=== PATIENT | male | born 1980 | race Caucasian/White ===

== ENCOUNTER 2018-10-17 16:50 | Inpatient (IN) | payer BC, MEDICARE ==
[~2018-10-17] VITALS: Ht 170.2 cm; Wt 59.4 kg
[2018-10-17] VITALS (10 sets, daily range): BP systolic 89–172
[~2018-10-17 16:50] MED LIST: ITRA100C PO; LEVO500T20 PO; METR500T PO; PRED10TA PO; [UNRECOGNIZED DRUG - OTHER] IV
[2018-10-17] MEDS ORDERED: PROPOFOL DRIP 100 ML IV ONE ×2 (17:00→17:11)
[2018-10-17 17:21] LABS: HEMOGLOBIN 12.2 g/dL (14.0-18.0); MEAN CORPUSCULAR HEMOGLOBIN 30 pg (27-31); MEAN CORPUSCULAR HGB CONC 32 % (32-36); MEAN CORPUSCULAR VOLUME 93 fL (79.0-98.0); PLATELET COUNT (AUTO) 189 K/uL (130-430); RED BLOOD CELL COUNT(AUTO) 4.11 MIL/uL (4.2-6.2); RED CELL DISTRIBUTION WIDTH 16.8 % (9.0-15.0)
[2018-10-17] MEDS ORDERED: MERO1PIG IV (17:28)
[2018-10-17] MEDS ORDERED: VFE200 PO (17:28)
[2018-10-17] MEDS ORDERED: XOP.63 INH (17:28)
[2018-10-17] MEDS ORDERED: LEVE500T9 PO (17:28)
[2018-10-17] MEDS ORDERED: SULF1TAB48 PO (17:28)
[2018-10-17] MEDS ORDERED: LORazepam 2 MG/ML VIAL (FOR ER USE) IVP ONE (17:30)
[2018-10-17] MEDS ORDERED: PIPERACILLIN/TAZO 3.375 GM in NS 50 ML IV ONE (17:30)
[2018-10-17] MEDS ORDERED: LORazepam 2 MG/ML VIAL (FOR ER USE) ONE (17:37)
[2018-10-17 17:40] LABS: ANION GAP 6 (5-15); CALCIUM 9.3 mg/dL (8.4-11.0); CHLORIDE 90 mmol/L (98-107); CREATININE 1.15 mg/dL (0.55-1.30); GLUCOSE 228 mg/dL (70-99); POTASSIUM 4.4 mmol/L (3.5-5.1); SODIUM SERUM 139 mmol/L (136-145); UREA NITROGEN, BLOOD 18 mg/dL (8-21)
[2018-10-17 17:43] LABS: GFR AFRICAN AMERICAN 91 mL/min (>90)
[2018-10-17 17:44] LABS: INR 0.9 (0.80-1.20)
[2018-10-17] MEDS ORDERED: NACL 0.9% 2,500 ML IV ONE (17:45)
[2018-10-17 17:46] LABS: ALANINE AMINOTRANSFERASE 7 U/L (12-78); ALBUMIN 3.1 g/dL (3.4-4.8); ASPARTATE AMINOTRANSFERASE 21 U/L (10-37); TOTAL BILIRUBIN 0.5 mg/dL (0.0-1.0)
[2018-10-17 17:47] LABS: ACETAMINOPHEN < 1 ug/mL (1-30); ALCOHOL, BLOOD < 3 mg/dL (<10)
[2018-10-17 17:53] LABS: BILIRUBIN,URINE NEGATIVE (NEGATIVE); BLOOD, URINE 1+ (NEGATIVE); CLARITY/URINE SL CLOUDY (CLEAR); COLOR,URINE YELLOW (YELLOW); GLUCOSE,URINE TRACE (NEGATIVE); KETONES,URINE NEGATIVE (NEGATIVE); LEUKOCYTE ESTERASE ,URINE NEGATIVE (NEGATIVE); NITRITE, URINE NEGATIVE (NEGATIVE); PH,URINE 6.5 (5.0-8.0); PROTEIN URINE 3+ (NEGATIVE); UROBILINOGEN,URINE 0.2 (0.2-1.0)
[2018-10-17 17:57] LABS: BAND % (MANUAL) 9 % (0-6); BASOPHILS % (MANUAL) 0 % (0-2); EOSINOPHILS % (MANUAL) 1 % (0-7); LYMPHOCYTES % (MANUAL) 12 % (20-46); MONOCYTES % (MANUAL) 8 % (0-11)
[2018-10-17 17:59] LABS: BACTERIA,URINE MODERATE /HPF (None Seen)
[2018-10-17 18:03] LABS: BARBITURATE, URINE NEGATIVE (NEG <=200); BENZODIAZEPINE, URINE NEGATIVE (NEG <=150); CANNABINOID, URINE NEGATIVE (NEG <=50); COCAINE, URINE NEGATIVE (NEG <=150); METHAMPHETAMINES SCREEN,URINE NEGATIVE (NEG <=500); OPIATE, URINE NEGATIVE (NEG <=100); PHENCYCLIDINE SCREEN,URINE NEGATIVE (NEG <=25); UR TRICYCLIC ANTIDEPRESSANTS NEGATIVE (NEG <=300); URINE AMPHETAMINE NEGATIVE (NEG <=500); URINE METHADONE NEGATIVE (NEG <=200); URINE OXYCODONE SCREEN NEGATIVE (NEG <=100); URINE PROPOXYPHENE SCREEN NEGATIVE (NEG <=300)
[2018-10-17] MEDS ORDERED: DOPamine PREMIX 250 ML IV ONE ×2 (18:15→18:20)
[2018-10-17] MEDS ORDERED: LEVOFLOXACIN 500 MG/D5W 100 ML IV ONE ×2 (18:15→20:56)
[2018-10-17] MEDS ORDERED: PIPERACILLIN/TAZOBACTAM 3.375 GM/VIAL (ZOSYN) IV ONE (18:18)
[2018-10-17] MEDS ORDERED: ETOMIDATE 20 MG/ 10 ML VIAL (AMIDATE) ONE (18:34)
[2018-10-17] MEDS ORDERED: DOCUSATE SODIUM 100 MG CAPSULE PO PRN (19:00)
[2018-10-17] MEDS ORDERED: ACETAMINOPHEN 325 MG TABLET PO PRN (19:00)
[2018-10-17] MEDS ORDERED: DEXTROSE 50% JECT 50 ML DISP.SYRIN IVP PRN (19:00)
[2018-10-17] MEDS ORDERED: LORazepam 2 MG/ML VIAL IVP PRN ×2 (19:00→20:15)
[2018-10-17] MEDS ORDERED: MAGNESIUM SULFATE 50 ML IV PRN (19:00)
[2018-10-17] MEDS ORDERED: ONDANSETRON HCL 4 MG/2 ML VIAL IVP PRN (19:00)
[2018-10-17] MEDS ORDERED: ZOLPIDEM TARTRATE 5 MG TABLET PO PRN (19:00)
[2018-10-17] MEDS ORDERED: MUPIROCIN 2% TOPICAL OINTMENT 22 GM NS PRN (19:00)
[2018-10-17] MEDS ORDERED: MORPHINE 4 MG/ML INJ. SYRINGE IVP PRN ×3 (19:00→20:15)
[2018-10-17] MEDS ORDERED: NOREPINEPHRINE 4 MG/4 ML VIAL IV ONE (19:46)
[2018-10-17] MEDS: D5NS 1,000 ML IV SCH (19:54)
[2018-10-17] MEDS: HYDROCORTISONE SOD SUCC 100 MG/2 ML VIAL IVP SCH ×2 (20:15→20:36)
[2018-10-17] MEDS ORDERED: HYDROCORTISONE SOD SUCC 100 MG/2 ML VIAL ONE (20:38)
[2018-10-17] MEDS: HEPARIN SODIUM,PORCINE 5000 UNITS/ML VIAL SUBCUT SCH (20:48)
[2018-10-17] MEDS: INSULIN ASPART 100 UNITS/ML, 10 ML VIAL (NovoLOG) SUBCUT PRN (20:59)
[2018-10-17] MEDS: VORICONAZOLE 200 MG TABLET PO SCH (21:00)
[2018-10-17] MEDS: LEVOFLOXACIN 500 MG/D5W 100 ML IV SCH (21:09)
[2018-10-17] MEDS: levETIRAcetam 500 MG in NS 100 ML IV SCH (21:13)
[2018-10-17] MEDS ORDERED: SULFAMETHOXAZOLE/TRIMETHOPR DS 1 TABLET ONE ×2 (21:18→21:26)
[2018-10-17] MEDS: SULFAMETHOXAZOLE/TRIMETHOPR DS 1 TABLET PO SCH (21:19)
[2018-10-17] MEDS: NOREPINEPHRINE BITARTRATE 4 MG in NS 246 ML IV PRN (21:23)
[2018-10-17] MEDS: VANCOMYCIN HCL 1000 MG/VIAL IV ONE ×2 (21:24→22:05)
[2018-10-17] MEDS ORDERED: VANCOMYCIN HCL 1 GM/NS PREMIX 250 ML IV ONE (22:00)
[2018-10-17] MEDS: PIPERACILLIN/TAZO 3.375/DEX-IS 50 ML IV SCH (23:42)
[2018-10-18] VITALS (36 sets, daily range): BP systolic 69–154
[2018-10-18] MEDS: HYDROCORTISONE SOD SUCC 100 MG/2 ML VIAL IVP SCH ×4 (00:08→21:54)
[2018-10-18] MEDS: LevALBUTEROL HCL 1.25 MG/0.5 ML *CONC.* VIAL.NEB (XOPENEX CONC.) INH SCH ×4 (02:03→19:14)
[2018-10-18] MEDS: PROPOFOL DRIP 100 ML IV PRN ×4 (04:52→18:50)
[2018-10-18] MEDS: PIPERACILLIN/TAZO 3.375/DEX-IS 50 ML IV SCH ×3 (05:22→17:17)
[2018-10-18] MEDS: D5NS 1,000 ML IV SCH (05:44)
[2018-10-18] MEDS: INSULIN ASPART 100 UNITS/ML, 10 ML VIAL (NovoLOG) SUBCUT PRN (06:34)
[2018-10-18 06:57] LABS: EOSINOPHILS % (AUTO) 0.3 % (0.0-4.0); HEMATOCRIT 31.5 % (36-54); HEMOGLOBIN 10.3 g/dL (14.0-18.0); LYMPHOCYTES # (AUTO) 0.5 K/uL (1.0-5.5); MEAN CORPUSCULAR HEMOGLOBIN 30 pg (27-31); MEAN CORPUSCULAR HGB CONC 33 % (32-36); MEAN CORPUSCULAR VOLUME 91 fL (79.0-98.0); MONOCYTES # (AUTO) 0.4 K/uL (0.0-1.0); MONOCYTES % (AUTO) 3.7 % (1.7-9.3); NEUTROPHILS # (AUTO) 10.7 K/uL (1.8-7.7); PLATELET COUNT (AUTO) 136 K/uL (130-430); RED BLOOD CELL COUNT(AUTO) 3.48 MIL/uL (4.2-6.2); RED CELL DISTRIBUTION WIDTH 16.1 % (9.0-15.0); WHITE BLOOD COUNT (AUTO) 11.6 K/uL (4.8-10.8)
[2018-10-18 06:59] LABS: CALCIUM 8.4 mg/dL (8.4-11.0); CREATININE 0.82 mg/dL (0.55-1.30); POTASSIUM 3.4 mmol/L (3.5-5.1)
[2018-10-18 07:17] LABS: ALBUMIN 2.6 g/dL (3.4-4.8); TOTAL BILIRUBIN 0.9 mg/dL (0.0-1.0)
[2018-10-18] MEDS: levETIRAcetam 500 MG in NS 100 ML IV SCH ×2 (09:07→21:54)
[2018-10-18] MEDS: POTASSIUM CHLORIDE 20 MEQ TAB.PRT.SR PO PRN (09:08)
[2018-10-18] MEDS: SULFAMETHOXAZOLE/TRIMETHOPR DS 1 TABLET PO SCH ×2 (09:08→20:35)
[2018-10-18] MEDS: VORICONAZOLE 200 MG TABLET PO SCH ×2 (09:08→20:34)
[2018-10-18] MEDS: HEPARIN SODIUM,PORCINE 5000 UNITS/ML VIAL SUBCUT SCH ×2 (09:26→20:38)
[2018-10-18] MEDS: NOREPINEPHRINE BITARTRATE 4 MG in NS 246 ML IV PRN (09:30)
[2018-10-18] MEDS ORDERED: VANCOMYCIN HCL 1 GM/NS PREMIX 250 ML IV SCH (10:00)
[2018-10-18] MEDS: 0.45% NACL 1,000 ML IV SCH (16:29)
[2018-10-18] MEDS: LEVOFLOXACIN 500 MG/D5W 100 ML IV SCH (20:20)
[2018-10-19] VITALS (34 sets, daily range): BP systolic 82–121
[2018-10-19] MEDS: PROPOFOL DRIP 100 ML IV PRN ×5 (00:22→22:57)
[2018-10-19] MEDS: PIPERACILLIN/TAZO 3.375/DEX-IS 50 ML IV SCH ×4 (00:24→17:48)
[2018-10-19] MEDS: LevALBUTEROL HCL 1.25 MG/0.5 ML *CONC.* VIAL.NEB (XOPENEX CONC.) INH SCH ×4 (00:33→19:33)
[2018-10-19] MEDS: NOREPINEPHRINE BITARTRATE 4 MG in NS 246 ML IV PRN (01:51)
[2018-10-19] MEDS: HYDROCORTISONE SOD SUCC 100 MG/2 ML VIAL IVP SCH ×3 (06:08→22:19)
[2018-10-19] MEDS: 0.45% NACL 1,000 ML IV SCH ×2 (06:09→17:49)
[2018-10-19 06:27] LABS: EOSINOPHILS % (AUTO) 0.3 % (0.0-4.0); HEMOGLOBIN 9.6 g/dL (14.0-18.0); LYMPHOCYTES # (AUTO) 0.8 K/uL (1.0-5.5); MEAN CORPUSCULAR HEMOGLOBIN 30 pg (27-31); MEAN CORPUSCULAR HGB CONC 33 % (32-36); MEAN CORPUSCULAR VOLUME 91 fL (79.0-98.0); MONOCYTES # (AUTO) 0.5 K/uL (0.0-1.0); MONOCYTES % (AUTO) 6.5 % (1.7-9.3); NEUTROPHILS # (AUTO) 6.4 K/uL (1.8-7.7); NEUTROPHILS % (AUTO) 82.2 % (40.0-70.0); PLATELET COUNT (AUTO) 139 K/uL (130-430); RED BLOOD CELL COUNT(AUTO) 3.17 MIL/uL (4.2-6.2); RED CELL DISTRIBUTION WIDTH 16.5 % (9.0-15.0); WHITE BLOOD COUNT (AUTO) 7.7 K/uL (4.8-10.8)
[2018-10-19 06:50] LABS: ALBUMIN 2.4 g/dL (3.4-4.8); CALCIUM 8.4 mg/dL (8.4-11.0); CREATININE 0.99 mg/dL (0.55-1.30); POTASSIUM 3.3 mmol/L (3.5-5.1); TOTAL BILIRUBIN 0.3 mg/dL (0.0-1.0)
[2018-10-19] MEDS: SULFAMETHOXAZOLE/TRIMETHOPR DS 1 TABLET PO SCH ×2 (08:11→20:37)
[2018-10-19] MEDS: VORICONAZOLE 200 MG TABLET PO SCH ×2 (08:11→20:37)
[2018-10-19] MEDS: levETIRAcetam 500 MG in NS 100 ML IV SCH ×2 (08:12→22:19)
[2018-10-19] MEDS: HEPARIN SODIUM,PORCINE 5000 UNITS/ML VIAL SUBCUT SCH ×2 (08:14→20:41)
[2018-10-19] MEDS: POTASSIUM CHLORIDE 20 MEQ TAB.PRT.SR PO PRN (08:15)
[2018-10-19] MEDS ORDERED: NOREPINEPHRINE BITARTRATE 4 MG in NS 246 ML IV PRN (19:30)
[2018-10-19] MEDS: LEVOFLOXACIN 500 MG/D5W 100 ML IV SCH (20:26)
[2018-10-20] VITALS (27 sets, daily range): BP systolic 88–130
[2018-10-20] MEDS: PIPERACILLIN/TAZO 3.375/DEX-IS 50 ML IV SCH ×4 (00:06→17:06)
[2018-10-20] MEDS: LevALBUTEROL HCL 1.25 MG/0.5 ML *CONC.* VIAL.NEB (XOPENEX CONC.) INH SCH ×4 (01:21→20:04)
[2018-10-20] MEDS: HYDROCORTISONE SOD SUCC 100 MG/2 ML VIAL IVP SCH ×3 (05:58→22:09)
[2018-10-20] MEDS: 0.45% NACL 1,000 ML IV SCH ×2 (05:58→16:32)
[2018-10-20 07:04] LABS: CALCIUM 8.4 mg/dL (8.4-11.0); CREATININE 0.84 mg/dL (0.55-1.30); POTASSIUM 3.8 mmol/L (3.5-5.1)
[2018-10-20 07:17] LABS: BASOPHILS % (AUTO) 0.3 % (0.0-2.0); EOSINOPHILS # (AUTO) 0.1 K/uL (0.0-0.4); EOSINOPHILS % (AUTO) 1.3 % (0.0-4.0); HEMATOCRIT 28.3 % (36-54); HEMOGLOBIN 9.2 g/dL (14.0-18.0); LYMPHOCYTES # (AUTO) 0.6 K/uL (1.0-5.5); LYMPHOCYTES % (AUTO) 8.4 % (20.5-51.5); MEAN CORPUSCULAR HEMOGLOBIN 30 pg (27-31); MEAN CORPUSCULAR HGB CONC 33 % (32-36); MEAN CORPUSCULAR VOLUME 92 fL (79.0-98.0); MONOCYTES # (AUTO) 0.4 K/uL (0.0-1.0); MONOCYTES % (AUTO) 6.4 % (1.7-9.3); NEUTROPHILS # (AUTO) 5.7 K/uL (1.8-7.7); NEUTROPHILS % (AUTO) 83.6 % (40.0-70.0); PLATELET COUNT (AUTO) 156 K/uL (130-430); RED BLOOD CELL COUNT(AUTO) 3.06 MIL/uL (4.2-6.2); RED CELL DISTRIBUTION WIDTH 16.8 % (9.0-15.0); WHITE BLOOD COUNT (AUTO) 6.8 K/uL (4.8-10.8)
[2018-10-20] MEDS: levETIRAcetam 500 MG in NS 100 ML IV SCH ×2 (08:24→21:19)
[2018-10-20] MEDS: SULFAMETHOXAZOLE/TRIMETHOPR DS 1 TABLET PO SCH ×2 (08:25→21:18)
[2018-10-20] MEDS: VORICONAZOLE 200 MG TABLET PO SCH ×2 (08:25→21:17)
[2018-10-20] MEDS: HEPARIN SODIUM,PORCINE 5000 UNITS/ML VIAL SUBCUT SCH ×2 (08:28→21:16)
[2018-10-20] MEDS ORDERED: LevALBUTEROL HCL 1.25 MG/0.5 ML *CONC.* VIAL.NEB (XOPENEX CONC.) INH PRN (10:15)
[2018-10-20] MEDS: NOREPINEPHRINE BITARTRATE 4 MG in NS 246 ML IV PRN (12:27)
[2018-10-20] MEDS: LEVOFLOXACIN 500 MG/D5W 100 ML IV SCH (20:06)
[2018-10-21] VITALS (24 sets, daily range): BP systolic 87–125
[2018-10-21] MEDS: PIPERACILLIN/TAZO 3.375/DEX-IS 50 ML IV SCH ×5 (00:03→23:25)
[2018-10-21] MEDS: 0.45% NACL 1,000 ML IV SCH ×2 (00:04→14:27)
[2018-10-21] MEDS: LevALBUTEROL HCL 1.25 MG/0.5 ML *CONC.* VIAL.NEB (XOPENEX CONC.) INH SCH ×4 (01:02→19:44)
[2018-10-21] MEDS: HYDROCORTISONE SOD SUCC 100 MG/2 ML VIAL IVP SCH ×3 (05:35→21:39)
[2018-10-21 06:34] LABS: BASOPHILS % (AUTO) 0.1 % (0.0-2.0); EOSINOPHILS # (AUTO) 0.1 K/uL (0.0-0.4); EOSINOPHILS % (AUTO) 0.8 % (0.0-4.0); HEMATOCRIT 28.9 % (36-54); HEMOGLOBIN 9.3 g/dL (14.0-18.0); LYMPHOCYTES # (AUTO) 0.6 K/uL (1.0-5.5); LYMPHOCYTES % (AUTO) 8.8 % (20.5-51.5); MEAN CORPUSCULAR HEMOGLOBIN 30 pg (27-31); MEAN CORPUSCULAR HGB CONC 32 % (32-36); MEAN CORPUSCULAR VOLUME 93 fL (79.0-98.0); MONOCYTES # (AUTO) 0.3 K/uL (0.0-1.0); MONOCYTES % (AUTO) 4.4 % (1.7-9.3); NEUTROPHILS % (AUTO) 85.9 % (40.0-70.0); PLATELET COUNT (AUTO) 170 K/uL (130-430); RED BLOOD CELL COUNT(AUTO) 3.11 MIL/uL (4.2-6.2); RED CELL DISTRIBUTION WIDTH 16.2 % (9.0-15.0)
[2018-10-21 07:11] LABS: CALCIUM 8.5 mg/dL (8.4-11.0); CREATININE 0.76 mg/dL (0.55-1.30); POTASSIUM 3.8 mmol/L (3.5-5.1)
[2018-10-21] MEDS: VORICONAZOLE 200 MG TABLET PO SCH ×2 (08:30→20:43)
[2018-10-21] MEDS: levETIRAcetam 500 MG in NS 100 ML IV SCH (08:30)
[2018-10-21] MEDS: SULFAMETHOXAZOLE/TRIMETHOPR DS 1 TABLET PO SCH ×2 (08:30→20:43)
[2018-10-21] MEDS: HEPARIN SODIUM,PORCINE 5000 UNITS/ML VIAL SUBCUT SCH ×2 (08:46→20:45)
[2018-10-21] MEDS: LEVOFLOXACIN 500 MG/D5W 100 ML IV SCH (20:06)
[2018-10-21] MEDS: levETIRAcetam 500 MG TABLET PO SCH (20:43)
[2018-10-21] MEDS: NOREPINEPHRINE BITARTRATE 4 MG in NS 246 ML IV PRN (22:10)
[2018-10-22] VITALS (24 sets, daily range): BP systolic 90–149
[2018-10-22] MEDS: LevALBUTEROL HCL 1.25 MG/0.5 ML *CONC.* VIAL.NEB (XOPENEX CONC.) INH SCH ×4 (01:24→19:38)
[2018-10-22] MEDS: PIPERACILLIN/TAZO 3.375/DEX-IS 50 ML IV SCH ×3 (05:28→17:11)
[2018-10-22] MEDS: HYDROCORTISONE SOD SUCC 100 MG/2 ML VIAL IVP SCH ×3 (05:29→21:20)
[2018-10-22] MEDS: 0.45% NACL 1,000 ML IV SCH ×2 (05:41→17:16)
[2018-10-22 05:57] LABS: BASOPHILS % (AUTO) 0.3 % (0.0-2.0); EOSINOPHILS # (AUTO) 0.1 K/uL (0.0-0.4); EOSINOPHILS % (AUTO) 0.8 % (0.0-4.0); HEMOGLOBIN 10.8 g/dL (14.0-18.0); LYMPHOCYTES # (AUTO) 0.6 K/uL (1.0-5.5); MEAN CORPUSCULAR HEMOGLOBIN 30 pg (27-31); MEAN CORPUSCULAR HGB CONC 33 % (32-36); MEAN CORPUSCULAR VOLUME 91 fL (79.0-98.0); MONOCYTES # (AUTO) 0.4 K/uL (0.0-1.0); MONOCYTES % (AUTO) 3.8 % (1.7-9.3); NEUTROPHILS % (AUTO) 89.1 % (40.0-70.0); PLATELET COUNT (AUTO) 269 K/uL (130-430); RED BLOOD CELL COUNT(AUTO) 3.61 MIL/uL (4.2-6.2); RED CELL DISTRIBUTION WIDTH 16.7 % (9.0-15.0); WHITE BLOOD COUNT (AUTO) 10.1 K/uL (4.8-10.8)
[2018-10-22 06:30] LABS: ALBUMIN 2.7 g/dL (3.4-4.8); CALCIUM 8.5 mg/dL (8.4-11.0); CREATININE 0.87 mg/dL (0.55-1.30); TOTAL BILIRUBIN 0.1 mg/dL (0.0-1.0)
[2018-10-22] MEDS: levETIRAcetam 500 MG TABLET PO SCH ×2 (09:02→20:39)
[2018-10-22] MEDS: VORICONAZOLE 200 MG TABLET PO SCH ×2 (09:02→20:39)
[2018-10-22] MEDS: SULFAMETHOXAZOLE/TRIMETHOPR DS 1 TABLET PO SCH ×2 (09:02→20:39)
[2018-10-22] MEDS: HEPARIN SODIUM,PORCINE 5000 UNITS/ML VIAL SUBCUT SCH ×2 (09:03→20:42)
[2018-10-22] MEDS: LEVOFLOXACIN 500 MG/D5W 100 ML IV SCH (20:38)
[2018-10-23] VITALS (24 sets, daily range): BP systolic 91–124
[2018-10-23] MEDS: PIPERACILLIN/TAZO 3.375/DEX-IS 50 ML IV SCH ×4 (00:20→17:30)
[2018-10-23] MEDS: LevALBUTEROL HCL 1.25 MG/0.5 ML *CONC.* VIAL.NEB (XOPENEX CONC.) INH SCH ×4 (00:54→19:40)
[2018-10-23 05:20] LABS: BASOPHILS # (AUTO) 0.1 K/uL (0.0-0.2); EOSINOPHILS % (AUTO) 0.5 % (0.0-4.0); HEMOGLOBIN 9.7 g/dL (14.0-18.0); LYMPHOCYTES # (AUTO) 0.7 K/uL (1.0-5.5); LYMPHOCYTES % (AUTO) 9.6 % (20.5-51.5); MEAN CORPUSCULAR HEMOGLOBIN 30 pg (27-31); MEAN CORPUSCULAR HGB CONC 34 % (32-36); MEAN CORPUSCULAR VOLUME 90 fL (79.0-98.0); MONOCYTES # (AUTO) 0.3 K/uL (0.0-1.0); MONOCYTES % (AUTO) 4.9 % (1.7-9.3); NEUTROPHILS # (AUTO) 5.8 K/uL (1.8-7.7); PLATELET COUNT (AUTO) 261 K/uL (130-430); RED BLOOD CELL COUNT(AUTO) 3.21 MIL/uL (4.2-6.2); RED CELL DISTRIBUTION WIDTH 16.3 % (9.0-15.0); WHITE BLOOD COUNT (AUTO) 6.9 K/uL (4.8-10.8)
[2018-10-23 05:41] LABS: ALBUMIN 2.3 g/dL (3.4-4.8); CALCIUM 8.2 mg/dL (8.4-11.0); CREATININE 0.72 mg/dL (0.55-1.30); POTASSIUM 3.7 mmol/L (3.5-5.1); TOTAL BILIRUBIN 0.2 mg/dL (0.0-1.0)
[2018-10-23] MEDS: HYDROCORTISONE SOD SUCC 100 MG/2 ML VIAL IVP SCH ×3 (06:01→21:45)
[2018-10-23] MEDS: levETIRAcetam 500 MG TABLET PO SCH ×2 (08:08→21:44)
[2018-10-23] MEDS: VORICONAZOLE 200 MG TABLET PO SCH ×2 (08:09→21:46)
[2018-10-23] MEDS: SULFAMETHOXAZOLE/TRIMETHOPR DS 1 TABLET PO SCH ×2 (08:09→21:49)
[2018-10-23] MEDS: HEPARIN SODIUM,PORCINE 5000 UNITS/ML VIAL SUBCUT SCH ×2 (08:10→21:50)
[2018-10-23] MEDS: 0.45% NACL 1,000 ML IV SCH ×2 (08:52→21:42)
[2018-10-23] MEDS ORDERED: MIDODRINE HCL 2.5 MG TABLET (PROAMATINE) PO SCH (10:00)
[2018-10-23] MEDS ORDERED: FUROSEMIDE 20 MG/2 ML VIAL IVP ONE (13:00)
[2018-10-23] MEDS: NOREPINEPHRINE BITARTRATE 4 MG in NS 246 ML IV PRN (15:55)
[2018-10-23] MEDS: LEVOFLOXACIN 500 MG/D5W 100 ML IV SCH (21:46)
[2018-10-23] MEDS: MIDODRINE HCL 5 MG TABLET (PROAMATINE) PO SCH (21:47)
[2018-10-24] VITALS (24 sets, daily range): BP systolic 94–127
[2018-10-24] MEDS: PIPERACILLIN/TAZO 3.375/DEX-IS 50 ML IV SCH ×5 (01:01→23:01)
[2018-10-24] MEDS: LevALBUTEROL HCL 1.25 MG/0.5 ML *CONC.* VIAL.NEB (XOPENEX CONC.) INH SCH ×4 (01:54→19:54)
[2018-10-24] MEDS: HYDROCORTISONE SOD SUCC 100 MG/2 ML VIAL IVP SCH ×3 (06:03→21:25)
[2018-10-24] MEDS: HEPARIN SODIUM,PORCINE 5000 UNITS/ML VIAL SUBCUT SCH ×2 (10:04→21:29)
[2018-10-24] MEDS: MIDODRINE HCL 5 MG TABLET (PROAMATINE) PO SCH ×2 (10:05→21:27)
[2018-10-24] MEDS: levETIRAcetam 500 MG TABLET PO SCH ×2 (10:06→21:25)
[2018-10-24] MEDS: 0.45% NACL 1,000 ML IV SCH ×2 (10:07→23:01)
[2018-10-24] MEDS: VORICONAZOLE 200 MG TABLET PO SCH (21:26)
[2018-10-24] MEDS: SULFAMETHOXAZOLE/TRIMETHOPR DS 1 TABLET PO SCH (21:27)
[2018-10-25] VITALS (24 sets, daily range): BP systolic 94–129
[2018-10-25] MEDS: LevALBUTEROL HCL 1.25 MG/0.5 ML *CONC.* VIAL.NEB (XOPENEX CONC.) INH SCH ×4 (02:18→20:13)
[2018-10-25] MEDS: PIPERACILLIN/TAZO 3.375/DEX-IS 50 ML IV SCH ×4 (06:00→23:07)
[2018-10-25] MEDS: HYDROCORTISONE SOD SUCC 100 MG/2 ML VIAL IVP SCH ×3 (06:00→21:07)
[2018-10-25] MEDS: SULFAMETHOXAZOLE/TRIMETHOPR DS 1 TABLET PO SCH ×2 (08:35→21:09)
[2018-10-25] MEDS: VORICONAZOLE 200 MG TABLET PO SCH ×2 (08:35→21:08)
[2018-10-25] MEDS: levETIRAcetam 500 MG TABLET PO SCH ×2 (08:36→21:07)
[2018-10-25] MEDS: MIDODRINE HCL 5 MG TABLET (PROAMATINE) PO SCH ×2 (08:36→21:09)
[2018-10-25] MEDS: HEPARIN SODIUM,PORCINE 5000 UNITS/ML VIAL SUBCUT SCH ×2 (08:39→21:13)
[2018-10-25] MEDS: 0.45% NACL 1,000 ML IV SCH (21:07)
[2018-10-25] MEDS: INSULIN ASPART 100 UNITS/ML, 10 ML VIAL (NovoLOG) SUBCUT PRN (21:12)
[2018-10-26] VITALS (24 sets, daily range): BP systolic 90–124
[2018-10-26] MEDS: LevALBUTEROL HCL 1.25 MG/0.5 ML *CONC.* VIAL.NEB (XOPENEX CONC.) INH SCH ×4 (01:05→18:53)
[2018-10-26] MEDS: HYDROCORTISONE SOD SUCC 100 MG/2 ML VIAL IVP SCH ×3 (05:52→21:31)
[2018-10-26] MEDS: PIPERACILLIN/TAZO 3.375/DEX-IS 50 ML IV SCH ×4 (05:53→23:00)
[2018-10-26 06:39] LABS: CALCIUM 8.5 mg/dL (8.4-11.0); CREATININE 0.69 mg/dL (0.55-1.30)
[2018-10-26 06:41] LABS: POTASSIUM 2.4 mmol/L (3.5-5.1)
[2018-10-26] MEDS ORDERED: POTASSIUM CHLORIDE 20 MEQ TAB.PRT.SR PO ONE (07:45)
[2018-10-26] MEDS ORDERED: POTASSIUM CHLORIDE 40 MEQ in NS 250 ML IV ONE (08:00)
[2018-10-26] MEDS: levETIRAcetam 500 MG TABLET PO SCH ×2 (09:39→21:28)
[2018-10-26] MEDS: VORICONAZOLE 200 MG TABLET PO SCH ×2 (09:39→21:30)
[2018-10-26] MEDS: MIDODRINE HCL 5 MG TABLET (PROAMATINE) PO SCH ×2 (09:40→21:29)
[2018-10-26] MEDS: SULFAMETHOXAZOLE/TRIMETHOPR DS 1 TABLET PO SCH ×2 (09:40→21:30)
[2018-10-26] MEDS: HEPARIN SODIUM,PORCINE 5000 UNITS/ML VIAL SUBCUT SCH ×2 (09:42→21:37)
[2018-10-26 13:32] LABS: POTASSIUM 3.9 mmol/L (3.5-5.1)
[2018-10-26 13:33] LABS: CREATININE 0.81 mg/dL (0.55-1.30)
[2018-10-26] MEDS: 0.45% NACL 1,000 ML IV SCH (16:35)
[2018-10-26] MEDS: INSULIN ASPART 100 UNITS/ML, 10 ML VIAL (NovoLOG) SUBCUT PRN (21:36)
[2018-10-27] VITALS (25 sets, daily range): BP systolic 94–142
[2018-10-27] MEDS: LevALBUTEROL HCL 1.25 MG/0.5 ML *CONC.* VIAL.NEB (XOPENEX CONC.) INH SCH ×4 (00:50→19:57)
[2018-10-27] MEDS: PIPERACILLIN/TAZO 3.375/DEX-IS 50 ML IV SCH ×4 (06:09→23:08)
[2018-10-27] MEDS: HYDROCORTISONE SOD SUCC 100 MG/2 ML VIAL IVP SCH ×3 (06:10→21:08)
[2018-10-27 08:47] LABS: WHITE BLOOD COUNT (AUTO) 4.6 K/uL (4.8-10.8)
[2018-10-27 08:48] LABS: BASOPHILS % (AUTO) 0.2 % (0.0-2.0); EOSINOPHILS % (AUTO) 0.7 % (0.0-4.0); HEMATOCRIT 29.4 % (36-54); HEMOGLOBIN 9.7 g/dL (14.0-18.0); LYMPHOCYTES # (AUTO) 0.4 K/uL (1.0-5.5); LYMPHOCYTES % (AUTO) 9.6 % (20.5-51.5); MEAN CORPUSCULAR HEMOGLOBIN 31 pg (27-31); MEAN CORPUSCULAR HGB CONC 33 % (32-36); MEAN CORPUSCULAR VOLUME 93 fL (79.0-98.0); MONOCYTES # (AUTO) 0.2 K/uL (0.0-1.0); MONOCYTES % (AUTO) 3.9 % (1.7-9.3); NEUTROPHILS % (AUTO) 85.6 % (40.0-70.0); PLATELET COUNT (AUTO) 210 K/uL (130-430); RED BLOOD CELL COUNT(AUTO) 3.14 MIL/uL (4.2-6.2); RED CELL DISTRIBUTION WIDTH 16.4 % (9.0-15.0)
[2018-10-27 09:08] LABS: CALCIUM 8.6 mg/dL (8.4-11.0); CREATININE 0.68 mg/dL (0.55-1.30); PHOSPHORUS 2.2 mg/dL (2.7-4.5); POTASSIUM 3.1 mmol/L (3.5-5.1)
[2018-10-27] MEDS: levETIRAcetam 500 MG TABLET PO SCH ×2 (09:13→21:04)
[2018-10-27] MEDS: MIDODRINE HCL 5 MG TABLET (PROAMATINE) PO SCH ×2 (09:13→21:04)
[2018-10-27] MEDS: VORICONAZOLE 200 MG TABLET PO SCH ×2 (09:13→21:04)
[2018-10-27] MEDS: SULFAMETHOXAZOLE/TRIMETHOPR DS 1 TABLET PO SCH ×2 (09:13→21:04)
[2018-10-27] MEDS: HEPARIN SODIUM,PORCINE 5000 UNITS/ML VIAL SUBCUT SCH ×2 (09:15→21:08)
[2018-10-27] MEDS: POTASSIUM CHLORIDE 20 MEQ TAB.PRT.SR PO PRN (11:57)
[2018-10-27] MEDS: 0.45% NACL 1,000 ML IV SCH (12:04)
[2018-10-27] MEDS: INSULIN ASPART 100 UNITS/ML, 10 ML VIAL (NovoLOG) SUBCUT PRN (21:07)
[2018-10-28] VITALS (16 sets, daily range): BP systolic 93–119
[2018-10-28] MEDS: LevALBUTEROL HCL 1.25 MG/0.5 ML *CONC.* VIAL.NEB (XOPENEX CONC.) INH SCH ×4 (00:43→19:50)
[2018-10-28] MEDS: HYDROCORTISONE SOD SUCC 100 MG/2 ML VIAL IVP SCH ×2 (06:09→21:16)
[2018-10-28] MEDS: PIPERACILLIN/TAZO 3.375/DEX-IS 50 ML IV SCH ×4 (06:09→23:24)
[2018-10-28 07:59] LABS: WHITE BLOOD COUNT (AUTO) 4.8 K/uL (4.8-10.8)
[2018-10-28 08:00] LABS: HEMATOCRIT 31.4 % (36-54); HEMOGLOBIN 9.9 g/dL (14.0-18.0); MEAN CORPUSCULAR HEMOGLOBIN 30 pg (27-31); MEAN CORPUSCULAR HGB CONC 32 % (32-36); MEAN CORPUSCULAR VOLUME 94 fL (79.0-98.0); PLATELET COUNT (AUTO) 197 K/uL (130-430); RED BLOOD CELL COUNT(AUTO) 3.34 MIL/uL (4.2-6.2); RED CELL DISTRIBUTION WIDTH 17.3 % (9.0-15.0)
[2018-10-28 08:01] LABS: BASOPHILS % (AUTO) 0.3 % (0.0-2.0); EOSINOPHILS % (AUTO) 0.7 % (0.0-4.0); LYMPHOCYTES # (AUTO) 0.4 K/uL (1.0-5.5); LYMPHOCYTES % (AUTO) 8.5 % (20.5-51.5); MONOCYTES # (AUTO) 0.2 K/uL (0.0-1.0); MONOCYTES % (AUTO) 3.7 % (1.7-9.3); NEUTROPHILS # (AUTO) 4.2 K/uL (1.8-7.7); NEUTROPHILS % (AUTO) 86.8 % (40.0-70.0)
[2018-10-28 08:18] LABS: POTASSIUM 3.5 mmol/L (3.5-5.1)
[2018-10-28 08:19] LABS: CALCIUM 8.4 mg/dL (8.4-11.0); CREATININE 0.75 mg/dL (0.55-1.30); PHOSPHORUS 2.8 mg/dL (2.7-4.5)
[2018-10-28] MEDS: 0.45% NACL 1,000 ML IV SCH (08:42)
[2018-10-28] MEDS: SULFAMETHOXAZOLE/TRIMETHOPR DS 1 TABLET PO SCH ×2 (08:42→21:16)
[2018-10-28] MEDS: VORICONAZOLE 200 MG TABLET PO SCH ×2 (08:42→21:45)
[2018-10-28] MEDS: levETIRAcetam 500 MG TABLET PO SCH ×2 (08:42→21:16)
[2018-10-28] MEDS: MIDODRINE HCL 5 MG TABLET (PROAMATINE) PO SCH ×2 (08:43→21:16)
[2018-10-28] MEDS: HEPARIN SODIUM,PORCINE 5000 UNITS/ML VIAL SUBCUT SCH ×2 (08:46→21:23)
[2018-10-28] MEDS: INSULIN ASPART 100 UNITS/ML, 10 ML VIAL (NovoLOG) SUBCUT PRN (11:53)
[2018-10-29] VITALS: BP_SYST 106
[2018-10-29] MEDS: LevALBUTEROL HCL 1.25 MG/0.5 ML *CONC.* VIAL.NEB (XOPENEX CONC.) INH SCH ×4 (01:12→19:42)
[2018-10-29] MEDS: 0.45% NACL 1,000 ML IV SCH (05:54)
[2018-10-29] MEDS: PIPERACILLIN/TAZO 3.375/DEX-IS 50 ML IV SCH ×2 (05:55→11:18)
[2018-10-29] MEDS: SULFAMETHOXAZOLE/TRIMETHOPR DS 1 TABLET PO SCH ×2 (08:12→21:14)
[2018-10-29] MEDS: VORICONAZOLE 200 MG TABLET PO SCH ×2 (08:12→21:14)
[2018-10-29] MEDS: MIDODRINE HCL 5 MG TABLET (PROAMATINE) PO SCH ×2 (08:12→21:14)
[2018-10-29] MEDS: HYDROCORTISONE SOD SUCC 100 MG/2 ML VIAL IVP SCH ×2 (08:12→21:13)
[2018-10-29] MEDS: levETIRAcetam 500 MG TABLET PO SCH ×2 (08:13→21:14)
[2018-10-29] MEDS: HEPARIN SODIUM,PORCINE 5000 UNITS/ML VIAL SUBCUT SCH ×2 (08:14→21:17)
[2018-10-29 08:25] VITALS: BP_SYST 102
[2018-10-29 11:25] VITALS: BP_SYST 103
[2018-10-29 15:49] VITALS: BP_SYST 122
[2018-10-29 20:00] VITALS: BP_SYST 97
[2018-10-30] VITALS: BP_SYST 126
[2018-10-30] MEDS: 0.45% NACL 1,000 ML IV SCH (00:45)
[2018-10-30] MEDS: LevALBUTEROL HCL 1.25 MG/0.5 ML *CONC.* VIAL.NEB (XOPENEX CONC.) INH SCH ×4 (01:26→20:07)
[2018-10-30 08:12] LABS: CALCIUM 8.7 mg/dL (8.4-11.0); POTASSIUM 3.3 mmol/L (3.5-5.1)
[2018-10-30 08:13] LABS: CREATININE 0.69 mg/dL (0.55-1.30)
[2018-10-30 08:50] VITALS: BP_SYST 108
[2018-10-30] MEDS: MIDODRINE HCL 5 MG TABLET (PROAMATINE) PO SCH ×2 (09:14→21:04)
[2018-10-30] MEDS: HYDROCORTISONE SOD SUCC 100 MG/2 ML VIAL IVP SCH (09:14)
[2018-10-30] MEDS: levETIRAcetam 500 MG TABLET PO SCH ×2 (09:14→21:04)
[2018-10-30] MEDS: VORICONAZOLE 200 MG TABLET PO SCH ×2 (09:14→21:04)
[2018-10-30] MEDS: SULFAMETHOXAZOLE/TRIMETHOPR DS 1 TABLET PO SCH ×2 (09:14→21:04)
[2018-10-30] MEDS: POTASSIUM CHLORIDE 20 MEQ TAB.PRT.SR PO PRN (09:15)
[2018-10-30] MEDS: HEPARIN SODIUM,PORCINE 5000 UNITS/ML VIAL SUBCUT SCH ×2 (09:15→21:09)
[2018-10-30 11:28] VITALS: BP_SYST 108
[2018-10-30 15:37] VITALS: BP_SYST 114
[2018-10-30] MEDS: PREDNISONE 20 MG TABLET PO SCH (17:06)
[2018-10-30 20:00] VITALS: BP_SYST 115
[2018-10-31] MEDS: LevALBUTEROL HCL 1.25 MG/0.5 ML *CONC.* VIAL.NEB (XOPENEX CONC.) INH SCH ×3 (00:55→13:29)
[2018-10-31 01:00] VITALS: BP_SYST 126
[2018-10-31 07:47] LABS: CALCIUM 8.8 mg/dL (8.4-11.0); CHLORIDE 97 mmol/L (98-107); CREATININE 0.62 mg/dL (0.55-1.30); GFR AFRICAN AMERICAN 186 mL/min (>90); GLUCOSE 112 mg/dL (70-99); POTASSIUM 4.1 mmol/L (3.5-5.1); SODIUM SERUM 140 mmol/L (136-145); UREA NITROGEN, BLOOD 11 mg/dL (8-21)
[2018-10-31 07:49] LABS: ANION GAP < 3 (5-15)
[2018-10-31] MEDS: PREDNISONE 20 MG TABLET PO SCH (08:10)
[2018-10-31] MEDS: SULFAMETHOXAZOLE/TRIMETHOPR DS 1 TABLET PO SCH (08:10)
[2018-10-31] MEDS: levETIRAcetam 500 MG TABLET PO SCH (08:10)
[2018-10-31] MEDS: VORICONAZOLE 200 MG TABLET PO SCH (08:10)
[2018-10-31] MEDS: MIDODRINE HCL 5 MG TABLET (PROAMATINE) PO SCH (08:10)
[2018-10-31] MEDS: HEPARIN SODIUM,PORCINE 5000 UNITS/ML VIAL SUBCUT SCH (08:13)
[2018-10-31 08:26] VITALS: BP_SYST 119
[2018-10-31 12:02] VITALS: BP_SYST 115
[2018-10-31] MEDS ORDERED: VFE200 PO (15:23)
[2018-10-31 15:30] VITALS: BP_SYST 123
== END 2018-10-31 16:20 | disposition home or self-care (01) | DRG 720 ==
LOC: SED 16:50 → SIC 17:00 → STU 10-28 14:55
PROVIDERS: ADMIT General Practice; ATTEND General Practice
PROC: 0BH17EZ Insertion of Endotracheal Airway into Trachea, Via Natural or Artificial Opening (ICD-10-PCS; principal; 2018-10-17)
PROC: 5A1945Z Respiratory Ventilation, 24-96 Consecutive Hours (ICD-10-PCS; 2018-10-17)
PROC: 5A1935Z Respiratory Ventilation, Less than 24 Consecutive Hours (ICD-10-PCS; 2018-10-19)
PROC: 5A09357 Assistance with Respiratory Ventilation, Less than 24 Consecutive Hours, Continuous Positive Airway Pressure (ICD-10-PCS; 2018-10-19)
PROC: 5A09357 Assistance with Respiratory Ventilation, Less than 24 Consecutive Hours, Continuous Positive Airway Pressure (ICD-10-PCS; 2018-10-20)
PROC: 5A09357 Assistance with Respiratory Ventilation, Less than 24 Consecutive Hours, Continuous Positive Airway Pressure (ICD-10-PCS; 2018-10-22)
PROC: 5A09357 Assistance with Respiratory Ventilation, Less than 24 Consecutive Hours, Continuous Positive Airway Pressure (ICD-10-PCS; 2018-10-31)
DX: A41.9 Sepsis, unspecified organism (principal); J96.21 Acute and chronic respiratory failure with hypoxia; J69.0 Pneumonitis due to inhalation of food and vomit; R65.21 Severe sepsis with septic shock; G93.40 Encephalopathy, unspecified; G90.9 Disorder of the autonomic nervous system, unspecified; E87.1 Hypo-osmolality and hyponatremia; E87.4 Mixed disorder of acid-base balance; E87.6 Hypokalemia; F84.0 Autistic disorder; J15.6 Pneumonia due to other Gram-negative bacteria; J45.909 Unspecified asthma, uncomplicated; J96.22 Acute and chronic respiratory failure with hypercapnia; J98.4 Other disorders of lung; F41.9 Anxiety disorder, unspecified; N39.0 Urinary tract infection, site not specified; Z79.52 Long term (current) use of systemic steroids; Z87.01 Personal history of pneumonia (recurrent); Z99.81 Dependence on supplemental oxygen; Z79.899 Other long term (current) drug therapy; Z94.0 Kidney transplant status
CPT/HCPCS: 36415; 36600; 71045; 80048; 80053; 80307; 81000-TC; 82803-TC; 82962; 83036; 83605; 83735-TC; 83880; 84100-TC; 84484; 85007; 85025; 85027; 85610-TC; 85730-TC; 87040-TC; 87070-TC; 87081; 87086; 87205-TC; 93005; 93880; 94002; 94003; 94640; 94660; 94760; 96361; 96365; 96375; 97110-GP; 97112-GP; 97116-GP; 97163; 97530-GP; 99291; A6209; G0378; G0480; G0481; G0482; J1265; J1644; J1720; J1815; J1940; J1953; J1956; J2060; J2270; J2405; J2543; J2704; J3370; J3480; J3490; J7030; J7042; J7050; J7060; J7512; J7612

== ENCOUNTER 2018-11-04 17:08 | Inpatient (IN) | payer BC ==
[2018-11-04] VITALS (8 sets, daily range): BP systolic 102–154
[~2018-11-04] VITALS: Ht 170.2 cm; Wt 58.1 kg
[~2018-11-04 17:08] MED LIST changes: -ITRA100C PO; +LEVE500T9 PO; -LEVO500T20 PO; +MERO1PIG IV; -METR500T PO; +SULF1TAB48 PO; +VECURONIUM BROMIDE 10 MG/VIAL (NORCURON) IVP ONE; +VFE200 PO; +XOP.63 INH
[2018-11-04] MEDS ORDERED: IPRATROPIUM BROM 0.5 MG/2.5 ML VIAL.NEB (ATROVENT) INH ONE (17:30)
[2018-11-04] MEDS ORDERED: VECURONIUM BROMIDE 10 MG/VIAL (NORCURON) IVP ONE (17:30)
[2018-11-04] MEDS ORDERED: NALOXONE HCL 2 MG/2 ML SYR IVP ONE (17:30)
[2018-11-04] MEDS ORDERED: ALBUTEROL SULFATE 0.083% 2.5 MG/3 ML VIAL.NEB INH ONE (17:30)
[2018-11-04 17:41] LABS: MEAN CORPUSCULAR HEMOGLOBIN 30 pg (27-31)
[2018-11-04 17:52] LABS: HEMATOCRIT 41.1 % (36-54); HEMOGLOBIN 12.9 g/dL (14.0-18.0); MEAN CORPUSCULAR HGB CONC 31 % (32-36); MEAN CORPUSCULAR VOLUME 95 fL (79.0-98.0); PLATELET COUNT (AUTO) 186 K/uL (130-430); RED BLOOD CELL COUNT(AUTO) 4.31 MIL/uL (4.2-6.2); RED CELL DISTRIBUTION WIDTH 16.8 % (9.0-15.0); WHITE BLOOD COUNT (AUTO) 22.4 K/uL (4.8-10.8)
[2018-11-04 17:59] LABS: ANION GAP 8 (5-15); CALCIUM 9.6 mg/dL (8.4-11.0); CHLORIDE 96 mmol/L (98-107); CREATININE 1.26 mg/dL (0.55-1.30); GLUCOSE 280 mg/dL (70-99); POTASSIUM 3.8 mmol/L (3.5-5.1); SODIUM SERUM 142 mmol/L (136-145); UREA NITROGEN, BLOOD 22 mg/dL (8-21)
[2018-11-04] MEDS ORDERED: PIPERACILLIN/TAZO 3.375/DEX-IS 50 ML IV SCH (18:00)
[2018-11-04 18:02] LABS: GFR AFRICAN AMERICAN 82 mL/min (>90)
[2018-11-04 18:08] LABS: ALANINE AMINOTRANSFERASE 81 U/L (12-78); ALBUMIN 3.6 g/dL (3.4-4.8); ASPARTATE AMINOTRANSFERASE 34 U/L (10-37); TOTAL BILIRUBIN 0.4 mg/dL (0.0-1.0)
[2018-11-04] MEDS ORDERED: VANCOMYCIN HCL 1,000 MG in NS 250 ML IV ONE (18:15)
[2018-11-04] MEDS ORDERED: PIPERACILLIN/TAZOBACTAM 2.25 GM in NS 50 ML IV ONE (18:15)
[2018-11-04] MEDS ORDERED: PIPERACILLIN/TAZOBACTAM 2.25 GM VIAL IV ONE (18:40)
[2018-11-04] MEDS ORDERED: IPRATROPIUM BROM 0.5 MG/2.5 ML VIAL.NEB (ATROVENT) INH PRN (18:45)
[2018-11-04] MEDS ORDERED: ALBUTEROL SULFATE 0.083% 2.5 MG/3 ML VIAL.NEB INH PRN (18:45)
[2018-11-04] MEDS ORDERED: NS 500 ML IV ONE (19:00)
[2018-11-04] MEDS ORDERED: NACL 0.9% 1,000 ML IV ONE (19:00)
[2018-11-04] MEDS ORDERED: fentaNYL CITRATE/PF 100 MCG/2 ML AMP IVP ONE (19:00)
[2018-11-04] MEDS ORDERED: VANCOMYCIN HCL 1000 MG/VIAL IV ONE (19:10)
[2018-11-04 19:41] LABS: BAND % (MANUAL) 8 % (0-6); BASOPHILS % (MANUAL) 0 % (0-2); EOSINOPHILS % (MANUAL) 3 % (0-7); LYMPHOCYTES % (MANUAL) 31 % (20-46); MONOCYTES % (MANUAL) 13 % (0-11)
[2018-11-04] MEDS: IPRATROPIUM BROM 0.5 MG/2.5 ML VIAL.NEB (ATROVENT) INH SCH ×2 (19:54→23:00)
[2018-11-04] MEDS: ALBUTEROL SULFATE 0.083% 2.5 MG/3 ML VIAL.NEB INH SCH ×2 (19:54→23:00)
[2018-11-04] MEDS: VANCOMYCIN HCL 1,250 MG in NS 250 ML IV SCH (20:11)
[2018-11-04] MEDS ORDERED: PROPOFOL DRIP 100 ML IV ONE ×2 (20:39→20:43)
[2018-11-04] MEDS: D5NS 1,000 ML IV SCH (21:09)
[2018-11-04] MEDS: levETIRAcetam 500 MG TABLET PO SCH (21:26)
[2018-11-05] VITALS (31 sets, daily range): BP systolic 86–153
[2018-11-05] MEDS: PIPERACILLIN/TAZO 3.375/DEX-IS 50 ML IV SCH ×5 (00:10→23:39)
[2018-11-05] MEDS: IPRATROPIUM BROM 0.5 MG/2.5 ML VIAL.NEB (ATROVENT) INH SCH ×5 (03:00→23:00)
[2018-11-05] MEDS: ALBUTEROL SULFATE 0.083% 2.5 MG/3 ML VIAL.NEB INH SCH ×5 (03:00→23:00)
[2018-11-05] MEDS: PROPOFOL DRIP 100 ML IV PRN ×2 (04:07→09:26)
[2018-11-05] MEDS: levETIRAcetam 500 MG TABLET PO SCH ×2 (09:03→21:21)
[2018-11-05] MEDS: D5NS 1,000 ML IV SCH ×2 (09:04→17:30)
[2018-11-05] MEDS ORDERED: ALTEPLASE 2 MG VIAL MC ONE (11:00)
[2018-11-05] MEDS ORDERED: HYDROCORTISONE SOD SUCC 100 MG/2 ML VIAL IVP ONE (11:15)
[2018-11-05] MEDS ORDERED: VORICONAZOLE 200 MG TABLET PO ONE (11:15)
[2018-11-05] MEDS ORDERED: LORazepam 2 MG/ML VIAL IVP PRN (21:00)
[2018-11-05] MEDS: VANCOMYCIN HCL 1,250 MG in NS 250 ML IV SCH (21:11)
[2018-11-05] MEDS ORDERED: MORPHINE 2 MG/ML INJ. SYRINGE ONE (21:13)
[2018-11-05] MEDS: HYDROCORTISONE SOD SUCC 100 MG/2 ML VIAL IVP SCH (21:20)
[2018-11-05] MEDS: VORICONAZOLE 200 MG TABLET PO SCH (21:21)
[2018-11-06] VITALS (33 sets, daily range): BP systolic 98–127
[2018-11-06] MEDS: MORPHINE 4 MG/ML INJ. SYRINGE IVP PRN ×2 (01:16→12:19)
[2018-11-06] MEDS: D5NS 1,000 ML IV SCH (01:35)
[2018-11-06] MEDS: IPRATROPIUM BROM 0.5 MG/2.5 ML VIAL.NEB (ATROVENT) INH SCH ×6 (03:00→23:15)
[2018-11-06] MEDS: ALBUTEROL SULFATE 0.083% 2.5 MG/3 ML VIAL.NEB INH SCH ×5 (03:00→23:15)
[2018-11-06 06:23] LABS: CALCIUM 8.5 mg/dL (8.4-11.0); CREATININE 0.74 mg/dL (0.55-1.30)
[2018-11-06 06:29] LABS: ALBUMIN 2.6 g/dL (3.4-4.8); TOTAL BILIRUBIN 0.4 mg/dL (0.0-1.0)
[2018-11-06 06:40] LABS: BASOPHILS % (AUTO) 0.3 % (0.0-2.0); EOSINOPHILS % (AUTO) 0.4 % (0.0-4.0); HEMATOCRIT 28.9 % (36-54); HEMOGLOBIN 9.4 g/dL (14.0-18.0); LYMPHOCYTES # (AUTO) 0.4 K/uL (1.0-5.5); LYMPHOCYTES % (AUTO) 6.1 % (20.5-51.5); MEAN CORPUSCULAR HEMOGLOBIN 30 pg (27-31); MEAN CORPUSCULAR HGB CONC 33 % (32-36); MEAN CORPUSCULAR VOLUME 93 fL (79.0-98.0); MONOCYTES # (AUTO) 0.4 K/uL (0.0-1.0); MONOCYTES % (AUTO) 6.5 % (1.7-9.3); NEUTROPHILS # (AUTO) 5.9 K/uL (1.8-7.7); NEUTROPHILS % (AUTO) 86.7 % (40.0-70.0); WHITE BLOOD COUNT (AUTO) 6.7 K/uL (4.8-10.8)
[2018-11-06 09:23] LABS: PLATELET COUNT (AUTO) 92 K/uL (130-430)
[2018-11-06] MEDS: HYDROCORTISONE SOD SUCC 100 MG/2 ML VIAL IVP SCH ×2 (10:54→21:22)
[2018-11-06] MEDS: VORICONAZOLE 200 MG TABLET PO SCH ×2 (10:55→21:21)
[2018-11-06] MEDS: levETIRAcetam 500 MG TABLET PO SCH ×2 (10:55→21:21)
[2018-11-06] MEDS: 0.45% NACL 1,000 ML IV SCH (12:19)
[2018-11-06] MEDS: PIPERACILLIN/TAZO 3.375/DEX-IS 50 ML IV SCH ×2 (12:47→18:01)
[2018-11-06] MEDS: VANCOMYCIN HCL 1,250 MG in NS 250 ML IV SCH (19:06)
[2018-11-07] VITALS (35 sets, daily range): BP systolic 93–130
[2018-11-07] MEDS: PIPERACILLIN/TAZO 3.375/DEX-IS 50 ML IV SCH ×5 (00:05→23:33)
[2018-11-07] MEDS: IPRATROPIUM BROM 0.5 MG/2.5 ML VIAL.NEB (ATROVENT) INH SCH ×5 (02:30→23:00)
[2018-11-07] MEDS: ALBUTEROL SULFATE 0.083% 2.5 MG/3 ML VIAL.NEB INH SCH ×6 (02:30→23:00)
[2018-11-07] MEDS: 0.45% NACL 1,000 ML IV SCH ×2 (04:24→12:11)
[2018-11-07] MEDS: MORPHINE 4 MG/ML INJ. SYRINGE IVP PRN ×3 (04:55→20:30)
[2018-11-07 05:58] LABS: CREATININE 0.78 mg/dL (0.55-1.30); POTASSIUM 3.6 mmol/L (3.5-5.1)
[2018-11-07 06:16] LABS: BASOPHILS % (AUTO) 0.2 % (0.0-2.0); EOSINOPHILS # (AUTO) 0.1 K/uL (0.0-0.4); EOSINOPHILS % (AUTO) 0.9 % (0.0-4.0); HEMATOCRIT 30.2 % (36-54); HEMOGLOBIN 9.8 g/dL (14.0-18.0); LYMPHOCYTES # (AUTO) 0.5 K/uL (1.0-5.5); LYMPHOCYTES % (AUTO) 8.1 % (20.5-51.5); MEAN CORPUSCULAR HEMOGLOBIN 30 pg (27-31); MEAN CORPUSCULAR HGB CONC 32 % (32-36); MEAN CORPUSCULAR VOLUME 92 fL (79.0-98.0); MONOCYTES # (AUTO) 0.3 K/uL (0.0-1.0); MONOCYTES % (AUTO) 4.9 % (1.7-9.3); NEUTROPHILS # (AUTO) 4.7 K/uL (1.8-7.7); NEUTROPHILS % (AUTO) 85.9 % (40.0-70.0); PLATELET COUNT (AUTO) 91 K/uL (130-430); RED BLOOD CELL COUNT(AUTO) 3.27 MIL/uL (4.2-6.2); RED CELL DISTRIBUTION WIDTH 16.7 % (9.0-15.0); WHITE BLOOD COUNT (AUTO) 5.6 K/uL (4.8-10.8)
[2018-11-07] MEDS: VORICONAZOLE 200 MG TABLET PO SCH ×2 (08:08→20:28)
[2018-11-07] MEDS: levETIRAcetam 500 MG TABLET PO SCH ×2 (08:08→20:28)
[2018-11-07] MEDS: HYDROCORTISONE SOD SUCC 100 MG/2 ML VIAL IVP SCH ×2 (08:09→20:28)
[2018-11-07] MEDS: SULFAMETHOXAZOLE/TRIMETHOPR DS 1 TABLET PO SCH (20:28)
[2018-11-08] VITALS (35 sets, daily range): BP systolic 103–178
[2018-11-08] MEDS: IPRATROPIUM BROM 0.5 MG/2.5 ML VIAL.NEB (ATROVENT) INH SCH ×7 (01:11→23:00)
[2018-11-08] MEDS: 0.45% NACL 1,000 ML IV SCH ×2 (02:47→17:00)
[2018-11-08] MEDS: ALBUTEROL SULFATE 0.083% 2.5 MG/3 ML VIAL.NEB INH SCH ×6 (03:30→23:00)
[2018-11-08] MEDS: MORPHINE 4 MG/ML INJ. SYRINGE IVP PRN ×2 (05:14→18:24)
[2018-11-08] MEDS: PIPERACILLIN/TAZO 3.375/DEX-IS 50 ML IV SCH ×3 (05:20→17:00)
[2018-11-08 05:35] LABS: CALCIUM 8.6 mg/dL (8.4-11.0); CREATININE 0.62 mg/dL (0.55-1.30); POTASSIUM 3.5 mmol/L (3.5-5.1)
[2018-11-08 06:34] LABS: BASOPHILS % (AUTO) 0.4 % (0.0-2.0); EOSINOPHILS # (AUTO) 0.1 K/uL (0.0-0.4); EOSINOPHILS % (AUTO) 0.7 % (0.0-4.0); HEMATOCRIT 31.9 % (36-54); HEMOGLOBIN 10.3 g/dL (14.0-18.0); LYMPHOCYTES # (AUTO) 0.5 K/uL (1.0-5.5); LYMPHOCYTES % (AUTO) 6.2 % (20.5-51.5); MEAN CORPUSCULAR HEMOGLOBIN 30 pg (27-31); MEAN CORPUSCULAR HGB CONC 32 % (32-36); MEAN CORPUSCULAR VOLUME 93 fL (79.0-98.0); MONOCYTES # (AUTO) 0.5 K/uL (0.0-1.0); MONOCYTES % (AUTO) 7.1 % (1.7-9.3); NEUTROPHILS # (AUTO) 6.6 K/uL (1.8-7.7); NEUTROPHILS % (AUTO) 85.6 % (40.0-70.0); PLATELET COUNT (AUTO) 107 K/uL (130-430); RED BLOOD CELL COUNT(AUTO) 3.41 MIL/uL (4.2-6.2); RED CELL DISTRIBUTION WIDTH 16.3 % (9.0-15.0)
[2018-11-08 06:56] LABS: WHITE BLOOD COUNT (AUTO) 7.7 K/uL (4.8-10.8)
[2018-11-08] MEDS: VORICONAZOLE 200 MG TABLET PO SCH ×2 (09:34→20:23)
[2018-11-08] MEDS: HYDROCORTISONE SOD SUCC 100 MG/2 ML VIAL IVP SCH ×2 (09:35→20:24)
[2018-11-08] MEDS: SULFAMETHOXAZOLE/TRIMETHOPR DS 1 TABLET PO SCH ×2 (09:35→20:23)
[2018-11-08] MEDS: levETIRAcetam 500 MG TABLET PO SCH ×2 (09:35→20:23)
[2018-11-09] VITALS (33 sets, daily range): BP systolic 98–169
[2018-11-09] MEDS: PIPERACILLIN/TAZO 3.375/DEX-IS 50 ML IV SCH ×5 (00:12→23:10)
[2018-11-09] MEDS: IPRATROPIUM BROM 0.5 MG/2.5 ML VIAL.NEB (ATROVENT) INH SCH ×5 (03:00→23:00)
[2018-11-09] MEDS: ALBUTEROL SULFATE 0.083% 2.5 MG/3 ML VIAL.NEB INH SCH ×6 (03:00→23:00)
[2018-11-09] MEDS: MORPHINE 4 MG/ML INJ. SYRINGE IVP PRN ×4 (03:20→20:58)
[2018-11-09 06:21] LABS: CALCIUM 8.9 mg/dL (8.4-11.0); CREATININE 0.58 mg/dL (0.55-1.30); POTASSIUM 3.2 mmol/L (3.5-5.1)
[2018-11-09 06:44] LABS: BASOPHILS % (AUTO) 0.3 % (0.0-2.0); EOSINOPHILS % (AUTO) 0.6 % (0.0-4.0); HEMATOCRIT 30.8 % (36-54); HEMOGLOBIN 9.9 g/dL (14.0-18.0); LYMPHOCYTES # (AUTO) 0.6 K/uL (1.0-5.5); LYMPHOCYTES % (AUTO) 7.2 % (20.5-51.5); MEAN CORPUSCULAR HEMOGLOBIN 30 pg (27-31); MEAN CORPUSCULAR HGB CONC 32 % (32-36); MEAN CORPUSCULAR VOLUME 93 fL (79.0-98.0); MONOCYTES # (AUTO) 0.6 K/uL (0.0-1.0); MONOCYTES % (AUTO) 7.6 % (1.7-9.3); NEUTROPHILS # (AUTO) 6.8 K/uL (1.8-7.7); NEUTROPHILS % (AUTO) 84.3 % (40.0-70.0); PLATELET COUNT (AUTO) 113 K/uL (130-430); RED BLOOD CELL COUNT(AUTO) 3.32 MIL/uL (4.2-6.2); RED CELL DISTRIBUTION WIDTH 16.4 % (9.0-15.0)
[2018-11-09] MEDS: VORICONAZOLE 200 MG TABLET PO SCH ×2 (08:03→20:53)
[2018-11-09] MEDS: HYDROCORTISONE SOD SUCC 100 MG/2 ML VIAL IVP SCH ×2 (08:03→20:52)
[2018-11-09] MEDS: levETIRAcetam 500 MG TABLET PO SCH ×2 (08:03→20:53)
[2018-11-09] MEDS: SULFAMETHOXAZOLE/TRIMETHOPR DS 1 TABLET PO SCH ×2 (08:03→20:53)
[2018-11-09] MEDS: 0.45% NACL 1,000 ML IV SCH (08:04)
[2018-11-09] MEDS ORDERED: POTASSIUM CHLORIDE 20 MEQ/PKT PACKET PO ONE (15:30)
[2018-11-09] MEDS: D5NS 1,000 ML IV SCH (15:49)
[2018-11-10] VITALS (33 sets, daily range): BP systolic 98–119
[2018-11-10] MEDS: IPRATROPIUM BROM 0.5 MG/2.5 ML VIAL.NEB (ATROVENT) INH SCH ×6 (02:35→23:00)
[2018-11-10] MEDS: ALBUTEROL SULFATE 0.083% 2.5 MG/3 ML VIAL.NEB INH SCH ×6 (02:35→23:00)
[2018-11-10] MEDS: MORPHINE 4 MG/ML INJ. SYRINGE IVP PRN ×4 (04:59→21:41)
[2018-11-10] MEDS: PIPERACILLIN/TAZO 3.375/DEX-IS 50 ML IV SCH ×4 (04:59→23:00)
[2018-11-10 06:20] LABS: BASOPHILS % (AUTO) 0.3 % (0.0-2.0); EOSINOPHILS # (AUTO) 0.1 K/uL (0.0-0.4); HEMATOCRIT 28.6 % (36-54); HEMOGLOBIN 9.1 g/dL (14.0-18.0); LYMPHOCYTES # (AUTO) 0.5 K/uL (1.0-5.5); LYMPHOCYTES % (AUTO) 6.6 % (20.5-51.5); MEAN CORPUSCULAR HEMOGLOBIN 30 pg (27-31); MEAN CORPUSCULAR HGB CONC 32 % (32-36); MEAN CORPUSCULAR VOLUME 93 fL (79.0-98.0); MONOCYTES # (AUTO) 0.5 K/uL (0.0-1.0); MONOCYTES % (AUTO) 6.5 % (1.7-9.3); NEUTROPHILS # (AUTO) 6.1 K/uL (1.8-7.7); NEUTROPHILS % (AUTO) 85.6 % (40.0-70.0); PLATELET COUNT (AUTO) 109 K/uL (130-430); RED BLOOD CELL COUNT(AUTO) 3.07 MIL/uL (4.2-6.2); RED CELL DISTRIBUTION WIDTH 16.6 % (9.0-15.0); WHITE BLOOD COUNT (AUTO) 7.2 K/uL (4.8-10.8)
[2018-11-10 07:06] LABS: CALCIUM 8.8 mg/dL (8.4-11.0); CREATININE 0.61 mg/dL (0.55-1.30); POTASSIUM 3.5 mmol/L (3.5-5.1)
[2018-11-10] MEDS: levETIRAcetam 500 MG TABLET PO SCH ×2 (09:21→20:07)
[2018-11-10] MEDS: VORICONAZOLE 200 MG TABLET PO SCH ×2 (09:21→20:07)
[2018-11-10] MEDS: SULFAMETHOXAZOLE/TRIMETHOPR DS 1 TABLET PO SCH ×2 (09:21→20:07)
[2018-11-10] MEDS: HYDROCORTISONE SOD SUCC 100 MG/2 ML VIAL IVP SCH ×2 (09:22→20:07)
[2018-11-10] MEDS: D5NS 1,000 ML IV SCH (09:36)
[2018-11-10] MEDS ORDERED: FUROSEMIDE 20 MG/2 ML VIAL IVP ONE (11:00)
[2018-11-10] MEDS ORDERED: POTASSIUM CHLORIDE 40 MEQ in NS 250 ML IV ONE (11:30)
[2018-11-10] MEDS: 0.45% NACL 1,000 ML IV SCH (11:37)
[2018-11-11] VITALS (33 sets, daily range): BP systolic 103–143
[2018-11-11] MEDS: MORPHINE 4 MG/ML INJ. SYRINGE IVP PRN ×5 (01:46→20:58)
[2018-11-11] MEDS: ALBUTEROL SULFATE 0.083% 2.5 MG/3 ML VIAL.NEB INH SCH ×6 (03:00→23:00)
[2018-11-11] MEDS: IPRATROPIUM BROM 0.5 MG/2.5 ML VIAL.NEB (ATROVENT) INH SCH ×6 (03:00→23:00)
[2018-11-11] MEDS: PIPERACILLIN/TAZO 3.375/DEX-IS 50 ML IV SCH (05:39)
[2018-11-11 06:58] LABS: BASOPHILS % (AUTO) 0.2 % (0.0-2.0); EOSINOPHILS # (AUTO) 0.1 K/uL (0.0-0.4); EOSINOPHILS % (AUTO) 1.2 % (0.0-4.0); HEMATOCRIT 28.2 % (36-54); HEMOGLOBIN 9.2 g/dL (14.0-18.0); LYMPHOCYTES # (AUTO) 0.7 K/uL (1.0-5.5); LYMPHOCYTES % (AUTO) 8.9 % (20.5-51.5); MEAN CORPUSCULAR HEMOGLOBIN 31 pg (27-31); MEAN CORPUSCULAR HGB CONC 33 % (32-36); MEAN CORPUSCULAR VOLUME 94 fL (79.0-98.0); MONOCYTES # (AUTO) 0.5 K/uL (0.0-1.0); MONOCYTES % (AUTO) 6.4 % (1.7-9.3); NEUTROPHILS % (AUTO) 83.3 % (40.0-70.0); PLATELET COUNT (AUTO) 117 K/uL (130-430); RED CELL DISTRIBUTION WIDTH 16.2 % (9.0-15.0); WHITE BLOOD COUNT (AUTO) 7.3 K/uL (4.8-10.8)
[2018-11-11 07:06] LABS: CREATININE 0.62 mg/dL (0.55-1.30); POTASSIUM 3.4 mmol/L (3.5-5.1)
[2018-11-11] MEDS: levETIRAcetam 500 MG TABLET PO SCH ×2 (08:55→20:02)
[2018-11-11] MEDS: VORICONAZOLE 200 MG TABLET PO SCH ×2 (08:55→20:02)
[2018-11-11] MEDS: SULFAMETHOXAZOLE/TRIMETHOPR DS 1 TABLET PO SCH ×2 (08:55→20:03)
[2018-11-11] MEDS: HYDROCORTISONE SOD SUCC 100 MG/2 ML VIAL IVP SCH ×2 (08:56→20:02)
[2018-11-11] MEDS ORDERED: POTASSIUM CHLORIDE 20 MEQ/PKT PACKET PO ONE (11:30)
[2018-11-11] MEDS: 0.45% NACL 1,000 ML IV SCH (12:49)
[2018-11-12] VITALS (28 sets, daily range): BP systolic 92–129
[2018-11-12] MEDS: MORPHINE 4 MG/ML INJ. SYRINGE IVP PRN ×2 (01:02→05:26)
[2018-11-12] MEDS: ALBUTEROL SULFATE 0.083% 2.5 MG/3 ML VIAL.NEB INH SCH ×5 (07:10→23:00)
[2018-11-12] MEDS: IPRATROPIUM BROM 0.5 MG/2.5 ML VIAL.NEB (ATROVENT) INH SCH ×5 (07:10→23:00)
[2018-11-12 07:20] LABS: ALANINE AMINOTRANSFERASE 24 U/L (12-78); ALBUMIN 2.6 g/dL (3.4-4.8); ASPARTATE AMINOTRANSFERASE 10 U/L (10-37); CALCIUM 9.2 mg/dL (8.4-11.0); CHLORIDE 100 mmol/L (98-107); CREATININE 0.58 mg/dL (0.55-1.30); GLUCOSE 95 mg/dL (70-99); POTASSIUM 3.8 mmol/L (3.5-5.1); SODIUM SERUM 140 mmol/L (136-145); TOTAL BILIRUBIN 0.3 mg/dL (0.0-1.0); UREA NITROGEN, BLOOD 9 mg/dL (8-21)
[2018-11-12 07:24] LABS: GFR AFRICAN AMERICAN 201 mL/min (>90)
[2018-11-12 07:28] LABS: ANION GAP < 3 (5-15)
[2018-11-12] MEDS: levETIRAcetam 500 MG TABLET PO SCH ×2 (08:18→21:35)
[2018-11-12] MEDS: VORICONAZOLE 200 MG TABLET PO SCH ×2 (08:18→21:35)
[2018-11-12] MEDS: HYDROCORTISONE SOD SUCC 100 MG/2 ML VIAL IVP SCH ×2 (08:18→21:34)
[2018-11-12] MEDS: SULFAMETHOXAZOLE/TRIMETHOPR DS 1 TABLET PO SCH ×2 (08:19→21:36)
[2018-11-12] MEDS: 0.45% NACL 1,000 ML IV SCH (17:40)
[2018-11-13] VITALS (19 sets, daily range): BP systolic 101–129
[2018-11-13] MEDS: ALBUTEROL SULFATE 0.083% 2.5 MG/3 ML VIAL.NEB INH SCH ×6 (03:00→23:19)
[2018-11-13] MEDS: IPRATROPIUM BROM 0.5 MG/2.5 ML VIAL.NEB (ATROVENT) INH SCH ×6 (03:00→23:19)
[2018-11-13] MEDS: HYDROCORTISONE SOD SUCC 100 MG/2 ML VIAL IVP SCH ×2 (08:45→20:56)
[2018-11-13] MEDS: VORICONAZOLE 200 MG TABLET PO SCH ×2 (08:46→20:56)
[2018-11-13] MEDS: SULFAMETHOXAZOLE/TRIMETHOPR DS 1 TABLET PO SCH ×2 (08:46→20:57)
[2018-11-13] MEDS: levETIRAcetam 500 MG TABLET PO SCH ×2 (08:47→20:56)
[2018-11-13] MEDS ORDERED: BENZOCAINE/MENTHOL 1 EACH LOZENGE MM PRN (10:45)
[2018-11-13] MEDS ORDERED: ONDANSETRON HCL 4 MG/2 ML VIAL IVP PRN (10:45)
[2018-11-13] MEDS: 0.45% NACL 1,000 ML IV SCH (11:00)
[2018-11-13] MEDS ORDERED: BENZONATATE 100 MG CAPSULE (TESSALON) PO PRN (13:30)
[2018-11-14] MEDS: ALBUTEROL SULFATE 0.083% 2.5 MG/3 ML VIAL.NEB INH SCH ×4 (07:52→20:27)
[2018-11-14 07:53] VITALS: BP_SYST 112
[2018-11-14] MEDS: IPRATROPIUM BROM 0.5 MG/2.5 ML VIAL.NEB (ATROVENT) INH SCH ×4 (07:53→20:27)
[2018-11-14 08:00] VITALS: BP_SYST 112
[2018-11-14] MEDS: VORICONAZOLE 200 MG TABLET PO SCH ×2 (08:20→20:50)
[2018-11-14] MEDS: SULFAMETHOXAZOLE/TRIMETHOPR DS 1 TABLET PO SCH (08:20)
[2018-11-14] MEDS: HYDROCORTISONE SOD SUCC 100 MG/2 ML VIAL IVP SCH (08:20)
[2018-11-14] MEDS: levETIRAcetam 500 MG TABLET PO SCH ×2 (08:20→20:50)
[2018-11-14 11:45] VITALS: BP_SYST 124
[2018-11-14 16:01] VITALS: BP_SYST 104
[2018-11-14] MEDS: PREDNISONE 20 MG TABLET PO SCH (18:09)
[2018-11-14 20:35] VITALS: BP_SYST 109
[2018-11-14 23:00] VITALS: BP_SYST 105
[2018-11-15] MEDS: ALBUTEROL SULFATE 0.083% 2.5 MG/3 ML VIAL.NEB INH SCH (07:29)
[2018-11-15] MEDS: IPRATROPIUM BROM 0.5 MG/2.5 ML VIAL.NEB (ATROVENT) INH SCH (07:30)
[2018-11-15 08:22] VITALS: BP_SYST 108
[2018-11-15] MEDS: VORICONAZOLE 200 MG TABLET PO SCH (08:24)
[2018-11-15] MEDS: levETIRAcetam 500 MG TABLET PO SCH (08:24)
[2018-11-15] MEDS: PREDNISONE 20 MG TABLET PO SCH (08:24)
[2018-11-15 12:18] VITALS: BP_SYST 103
[2018-11-15 15:59] VITALS: BP_SYST 102
[2018-11-15 16:02] VITALS: BP_SYST 98
== END 2018-11-15 16:30 | disposition home or self-care (01) | DRG 720 ==
LOC: SED 17:08 → SIC 18:08 → STU 11-13 14:57 → SMU 11-14 17:58
PROVIDERS: ADMIT Specialist; ATTEND Internal Medicine Hospice and Palliative Medicine
PROC: 02HV33Z Insertion of Infusion Device into Superior Vena Cava, Percutaneous Approach (ICD-10-PCS; principal; 2018-11-04)
PROC: 5A1955Z Respiratory Ventilation, Greater than 96 Consecutive Hours (ICD-10-PCS; 2018-11-04)
PROC: B548ZZA Ultrasonography of Superior Vena Cava, Guidance (ICD-10-PCS; 2018-11-04)
PROC: 5A09357 Assistance with Respiratory Ventilation, Less than 24 Consecutive Hours, Continuous Positive Airway Pressure (ICD-10-PCS; 2018-11-06)
PROC: 5A09357 Assistance with Respiratory Ventilation, Less than 24 Consecutive Hours, Continuous Positive Airway Pressure (ICD-10-PCS; 2018-11-07)
PROC: 5A09357 Assistance with Respiratory Ventilation, Less than 24 Consecutive Hours, Continuous Positive Airway Pressure (ICD-10-PCS; 2018-11-08)
PROC: 5A09357 Assistance with Respiratory Ventilation, Less than 24 Consecutive Hours, Continuous Positive Airway Pressure (ICD-10-PCS; 2018-11-09)
PROC: 5A09357 Assistance with Respiratory Ventilation, Less than 24 Consecutive Hours, Continuous Positive Airway Pressure (ICD-10-PCS; 2018-11-10)
PROC: 5A09357 Assistance with Respiratory Ventilation, Less than 24 Consecutive Hours, Continuous Positive Airway Pressure (ICD-10-PCS; 2018-11-11)
PROC: 5A09457 Assistance with Respiratory Ventilation, 24-96 Consecutive Hours, Continuous Positive Airway Pressure (ICD-10-PCS; 2018-11-11)
DX: A41.9 Sepsis, unspecified organism (principal); J96.21 Acute and chronic respiratory failure with hypoxia; B44.0 Invasive pulmonary aspergillosis; B44.1 Other pulmonary aspergillosis; J84.10 Pulmonary fibrosis, unspecified; Z99.11 Dependence on respirator [ventilator] status; J15.6 Pneumonia due to other Gram-negative bacteria; J44.0 Chronic obstructive pulmonary disease with (acute) lower respiratory infection; B48.8 Other specified mycoses; Z99.81 Dependence on supplemental oxygen; Z94.0 Kidney transplant status; G40.901 Epilepsy, unspecified, not intractable, with status epilepticus; I10 Essential (primary) hypertension; F84.0 Autistic disorder; L92.9 Granulomatous disorder of the skin and subcutaneous tissue, unspecified; J96.22 Acute and chronic respiratory failure with hypercapnia; Z87.01 Personal history of pneumonia (recurrent)
CPT/HCPCS: 36415; 36600; 70450-TC; 71045; 80048; 80053; 82803-TC; 83605; 83880; 84484; 85007; 85025; 85027; 87040-TC; 87070-TC; 87081; 87086; 87101; 87205-TC; 87230-TC; 87305; 92610-GN; 93005; 93306; 94002; 94003; 94640; 94660; 94760; 95816; 96365; 96375; 97116-GP; 97530-GP; 99291; C1751; G0378; J1720; J1940; J2060; J2270; J2543; J2704; J2997; J3010; J3370; J3480; J3490; J7030; J7040; J7042; J7050; J7060; J7512; J7613

== ENCOUNTER 2019-07-08 08:33 | Inpatient (IN) | payer BC ==
[~2019-07-08] VITALS: Ht 170.2 cm; Wt 60.8 kg
[2019-07-08] VITALS (19 sets, daily range): BP systolic 93–135
[~2019-07-08 08:33] MED LIST changes: -MERO1PIG IV; -SULF1TAB48 PO; -VECURONIUM BROMIDE 10 MG/VIAL (NORCURON) IVP ONE
--- NOTE | 2019-07-08 08:40 | NUR ---
Placed in room 8. Placed on manager cardiac, blood pressure machine and pulse oximeter. To gown for exam. Side rails up. Report given to Jens PARK.
--- NOTE | 2019-07-08 08:43 | NUR ---
Patient arrived via EMS. Patient is awake, alert, and oriented x4. Patient compaint is that since this morning he had a panic attack and started feeling short of breath.
[2019-07-08] MEDS ORDERED: ALBUTEROL SULFATE 0.083% 2.5 MG/3 ML VIAL.NEB IH ONE (08:45)
[2019-07-08] MEDS ORDERED: LEVALBUTEROL HCL 0.63 MG/3 ML VIAL.NEB IH ONE (08:45)
[2019-07-08] MEDS ORDERED: methylPREDNISolone SOD SUCC/PF 62.5 MG/ML VIAL IVP ONE (08:45)
--- NOTE | 2019-07-08 08:45 | NUR ---
ER Dr. Miller at bedside examining patient.
--- NOTE | 2019-07-08 09:00 | NUR ---
RT NOTES Placed pt on bipap 09/25 BUR 18 50% per Dr Miller's order. Pt. appears to tolerate well. Will monitor pt.
[2019-07-08] MEDS ORDERED: LORazepam 2 MG/ML VIAL IVP ONE ×2 (09:15→10:30)
[2019-07-08 09:39] LABS: BASOPHILS # (AUTO) 0.1 K/uL (0.0-0.2); BASOPHILS % (AUTO) 0.9 % (0.0-2.0); EOSINOPHILS # (AUTO) 0.2 K/uL (0.0-0.4); EOSINOPHILS % (AUTO) 3.4 % (0.0-4.0); HEMATOCRIT 34.1 % (36-54); HEMOGLOBIN 11.3 g/dL (14.0-18.0); LYMPHOCYTES # (AUTO) 0.9 K/uL (1.0-5.5); LYMPHOCYTES % (AUTO) 12.7 % (20.5-51.5); MEAN CORPUSCULAR HEMOGLOBIN 29 pg (27-31); MEAN CORPUSCULAR HGB CONC 33 % (32-36); MEAN CORPUSCULAR VOLUME 89 fL (79.0-98.0); MONOCYTES # (AUTO) 0.4 K/uL (0.0-1.0); MONOCYTES % (AUTO) 6.2 % (1.7-9.3); NEUTROPHILS # (AUTO) 5.3 K/uL (1.8-7.7); NEUTROPHILS % (AUTO) 76.8 % (40.0-70.0); PLATELET COUNT (AUTO) 128 K/uL (130-430); RED BLOOD CELL COUNT(AUTO) 3.85 MIL/uL (4.2-6.2); RED CELL DISTRIBUTION WIDTH 14.9 % (9.0-15.0); WHITE BLOOD COUNT (AUTO) 6.9 K/uL (4.8-10.8)
[2019-07-08 09:40] LABS: CALCIUM 9.1 mg/dL (8.4-11.0); CREATININE 0.97 mg/dL (0.55-1.30); POTASSIUM 4.2 mmol/L (3.5-5.1)
[2019-07-08 09:43] LABS: INR 0.9 (0.80-1.20); PROTHROMBIN TIME 9.5 SECS (9.5-12.5)
[2019-07-08 09:54] LABS: ALBUMIN 4.3 g/dL (3.4-4.8); TOTAL BILIRUBIN 0.2 mg/dL (0.0-1.0)
--- NOTE | 2019-07-08 10:05 | NUR ---
Pt had vomited in bipap, green, watery. Verbal order by Dr. Miller for zofran 4mg IVP x1 recieved and given. RT and MD called to bedside.
--- NOTE | 2019-07-08 10:08 | NUR ---
Time out called for intubation. Pt still retaining CO2 dispite Bipap. Lehargic, pale. Pt and mother consent to intubation. Pt has been intubated before.
[2019-07-08] MEDS ORDERED: ONDANSETRON HCL 4 MG/2 ML VIAL ONE (10:15)
--- NOTE | 2019-07-08 10:16 | NUR ---
RT NOTES Pt. was intubated by Dr Miller w/ 7.5 ETT secured at 23cm lipline. (Pt. was hyperoxygenated before intubation) CO2 detector changed to yellow, bilateral B/S and chest rise noted. @1020 Placed pt on vent AC 20 500 40% per Dr Miller's order. Pt. appears to tolerate settings well. Sputum collected and endorsed to lab. Alarms set and audible.
--- NOTE | 2019-07-08 10:17 | NUR ---
Patient not known to be of DNR status. Patient medicated with 20 mg of etomidate for sedation and 60mg Rocuronium prior to placement of ET tube. Respiratory therapy at bedside prior to placement. Size 7.5 ET tube placed by Dr. Miller. Cuff inflated with air. Auscultation of breath sounds over bilateral chest wall. ET tube secured with device. O2 sats 100% pulse ox. PCXR ordered to check tube placement. Addendum: 07/08/19 at 1023 by SDEDSTC 23cm at the lip
[2019-07-08] MEDS ORDERED: ONDANSETRON HCL 4 MG/2 ML VIAL IVP ONE (10:30)
--- NOTE | 2019-07-08 10:35 | NUR ---
# 14 FR NG tube placed to left nare. Placement checked by auscultation of instilled air into stomach and aspiration of gastric contents. Tubing taped in place to prevent dislodging. Patient tolerated well.
--- NOTE | 2019-07-08 10:38 | NUR ---
# 16 FR Aleman catheter with use of sterile technique. Immediate return of 20 cc yellow urine noted. Bedside drainage bag placed below level of bladder. Urine sample collected and sent to lab. Pt tolerated procedure well. Patient unable to toilet self.
--- NOTE | 2019-07-08 10:41 | NUR ---
X-ray at bedside.
[2019-07-08] MEDS ORDERED: VANCOMYCIN HCL 1,000 MG in NS 250 ML IV ONE (10:45)
[2019-07-08] MEDS ORDERED: PIPERACILLIN/TAZO 3.375 GM in NS 50 ML IV ONE (10:45)
--- NOTE | 2019-07-08 10:47 | NUR ---
Patient will be admitted to care of Dr. Stuart. Admitted to ICU unit. Will go to room ICU 6. Belongings list completed. Summary report printed. Report will be given at bedside.
--- NOTE | 2019-07-08 10:55 | NUR ---
# 18 gauge angiocath placed to right AC. Use of asceptic technique. Opsite placed over site. Blood return noted. Blood for lab drawn from site. Flushed with 10 cc of normal saline. No evidence of infiltration noted. Patient tolerated well.
[2019-07-08] MEDS ORDERED: PIPERACILLIN/TAZOBACTAM 3.375 GM/VIAL (ZOSYN) IV ONE (10:58)
[2019-07-08] MEDS ORDERED: ALBUTEROL SULFATE 0.083% 2.5 MG/3 ML VIAL.NEB INH PRN (11:00)
[2019-07-08] MEDS ORDERED: IPRATROPIUM BROM 0.5 MG/2.5 ML VIAL.NEB (ATROVENT) INH PRN (11:00)
[2019-07-08] MEDS ORDERED: VANCOMYCIN HCL 1000 MG/VIAL IV ONE (11:07)
[2019-07-08] MEDS ORDERED: SULF1TAB48 PO (11:18)
[2019-07-08] MEDS ORDERED: VORI200T3 PO (11:18)
--- NOTE | 2019-07-08 11:18 | NUR ---
Medication reconcilliation not completed. 3 out of 4 medications input. Mother stated she will bring in last medication. Addendum: 07/08/19 at 1124 by AN 4 out of 5 medications done, mother to bring in last medication.
[2019-07-08] MEDS ORDERED: CIPR5DRO EACH EYE (11:23)
[2019-07-08 11:45] LABS: BILIRUBIN,URINE NEGATIVE (NEGATIVE); CLARITY/URINE CLEAR (CLEAR); COLOR,URINE YELLOW (YELLOW); GLUCOSE,URINE NEGATIVE (NEGATIVE); KETONES,URINE NEGATIVE (NEGATIVE); LEUKOCYTE ESTERASE ,URINE NEGATIVE (NEGATIVE); NITRITE, URINE NEGATIVE (NEGATIVE); PROTEIN URINE 1+ (NEGATIVE); UROBILINOGEN,URINE 0.2 (0.2-1.0)
[2019-07-08 11:47] LABS: BLOOD, URINE TRACE (NEGATIVE)
--- NOTE | 2019-07-08 11:55 | NUR ---
Patient transferred to ICU6 via [facility]windthor[facility], mobile monitor, XAVIER dexter, 2 RTs. Bedside report given to XAVIER Albarran for continuation of care.
--- NOTE | 2019-07-08 11:55 | NUR ---
RT NOTES Transferred pt to ICU, pt remains on vent via ETT. No incidence, ETT remains secure/patent. Pt was endorsed to RT Camille.
--- NOTE | 2019-07-08 12:00 | NUR ---
Received patient from ER via [place]. Received plan of via sbar from endorsing nurse Jens PARK. Pt was intubated and has O2 state of 100. PT was transferred with RT. AC 20, TV 500 ml, FIO2 40%. PT was not on diprivan but is calm. PT did not present any signs of acute distress.
[2019-07-08 12:06] LABS: BACTERIA,URINE FEW /HPF (None Seen); HYALINE CASTS, URINE 0-10 /LPF (None Seen); RBC,URINE 0-3 /HPF (0-3); WBC,URINE 0-3 /HPF (0-3)
[2019-07-08] MEDS: cefTRIAXone 1 GM in D5W 50 ML IV SCH (12:21)
--- NOTE | 2019-07-08 12:25 | NUR ---
Called Dr. Rossy win exchange and left message for call back.
[2019-07-08] MEDS ORDERED: ETOMIDATE 20 MG/ 10 ML VIAL (AMIDATE) IVP ONE (13:04)
[2019-07-08] MEDS ORDERED: ROCURONIUM BROMIDE 10 MG/ML (ZEMURON) IV ONE (13:04)
[2019-07-08] MEDS: IPRATROPIUM BROM 0.5 MG/2.5 ML VIAL.NEB (ATROVENT) INH SCH ×2 (13:24→19:30)
[2019-07-08] MEDS: ALBUTEROL SULFATE 0.083% 2.5 MG/3 ML VIAL.NEB INH SCH ×2 (13:24→19:30)
--- NOTE | 2019-07-08 13:50 | NUR ---
RT NOTES- VENT CHANGES PLACED PT ON AC 18 450 +5 30%FI2O PER DR. BETHEA. KEEP SPO2 ABOVE 92%. XAVIER AMARAL NOTIFIED. WILL CONTINUE MONITORING.
[2019-07-08] MEDS ORDERED: LORazepam 2 MG/ML VIAL IVP PRN (14:00)
[2019-07-08] MEDS ORDERED: methylPREDNISolone SOD SUCC/PF 62.5 MG/ML VIAL IVP SCH (14:00)
[2019-07-08] MEDS ORDERED: MORPHINE 2 MG/ML INJ. SYRINGE IVP PRN (14:00)
[2019-07-08] MEDS ORDERED: ENOXAPARIN SODIUM 40 MG/0.4 ML SYRINGE SUBCUT ONE (14:15)
[2019-07-08] MEDS: AZITHROMYCIN 500 MG in NS 250 ML IV SCH (14:31)
[2019-07-08] MEDS: 0.45% NACL 1,000 ML IV SCH (14:31)
[2019-07-08] MEDS: methylPREDNISolone SOD SUCC 40 MG/ML VIAL IVP SCH ×2 (14:32→21:38)
[2019-07-08] MEDS: MORPHINE 2 MG/ML INJ. SYRINGE IVP PRN ×2 (17:15→23:23)
--- NOTE | 2019-07-08 19:26 | NUR ---
Closing Note Gave plan of care via sbar to endorsing nurse Diony PARK. Completed patient round.
--- NOTE | 2019-07-08 21:00 | NUR ---
PATIENT AWAKE ALERT REMAINS ON VENTILATOR ETT , INPLACE NASO GASTRIC TUBE PATENT LEFT NARES CHEST MOVEMENT REMAINS SYMMETRICAL UNLABORED HOB ELEVATED AC 18 LIP LINE 23 7.5 ET TV 450 FI02 30 % position change implemented & tolerated .
[2019-07-08] MEDS: FAMOTIDINE PF 20 MG/2 ML VIAL IVP SCH (21:38)
[2019-07-08] MEDS: SULFAMETHOXAZOLE/TRIMETHOPR DS 1 TABLET PO SCH (21:44)
[2019-07-08] MEDS: VORICONAZOLE 200 MG TABLET PO SCH (21:45)
--- NOTE | 2019-07-08 22:08 | NUR ---
solu - MEDROL 40 MG IVP administer as ordered .
--- NOTE | 2019-07-08 22:09 | NUR ---
NASOGASTRIC TUBE PATENT LEFT NARES RESIDUAL 5 ML TUBE PLACEMENT VERIFIED .
--- NOTE | 2019-07-08 22:10 | NUR ---
Bactrim Ds TABLET administer via NGT as ordered continue to monitor .
[2019-07-09] VITALS (37 sets, daily range): BP systolic 99–144
[2019-07-09] MEDS: IPRATROPIUM BROM 0.5 MG/2.5 ML VIAL.NEB (ATROVENT) INH SCH ×4 (00:53→19:15)
[2019-07-09] MEDS: ALBUTEROL SULFATE 0.083% 2.5 MG/3 ML VIAL.NEB INH SCH ×4 (00:53→19:15)
[2019-07-09] MEDS: 0.45% NACL 1,000 ML IV SCH (02:01)
--- NOTE | 2019-07-09 04:22 | NUR ---
MORPHINE SULFATE 2 MG IVP administer for PAIN 12/29 & helpful comfort measures implemented , tolerated .
--- NOTE | 2019-07-09 05:26 | NUR ---
Reposition & Turning off loading with pillows comfort measures implemented no SOB noted patient awake alert using CELL PHONE / .
[2019-07-09 05:52] LABS: BASOPHILS % (AUTO) 0.1 % (0.0-2.0); EOSINOPHILS % (AUTO) 0.4 % (0.0-4.0); HEMATOCRIT 28.3 % (36-54); HEMOGLOBIN 9.7 g/dL (14.0-18.0); LYMPHOCYTES # (AUTO) 0.4 K/uL (1.0-5.5); LYMPHOCYTES % (AUTO) 4.1 % (20.5-51.5); MEAN CORPUSCULAR HEMOGLOBIN 30 pg (27-31); MEAN CORPUSCULAR HGB CONC 34 % (32-36); MEAN CORPUSCULAR VOLUME 87 fL (79.0-98.0); MONOCYTES # (AUTO) 0.1 K/uL (0.0-1.0); MONOCYTES % (AUTO) 1.2 % (1.7-9.3); NEUTROPHILS # (AUTO) 8.7 K/uL (1.8-7.7); NEUTROPHILS % (AUTO) 94.2 % (40.0-70.0); PLATELET COUNT (AUTO) 121 K/uL (130-430); RED BLOOD CELL COUNT(AUTO) 3.25 MIL/uL (4.2-6.2); WHITE BLOOD COUNT (AUTO) 9.3 K/uL (4.8-10.8)
[2019-07-09 06:08] LABS: ALBUMIN 3.4 g/dL (3.4-4.8); CALCIUM 8.8 mg/dL (8.4-11.0); CREATININE 0.97 mg/dL (0.55-1.30); POTASSIUM 4.5 mmol/L (3.5-5.1); TOTAL BILIRUBIN 0.3 mg/dL (0.0-1.0)
[2019-07-09] MEDS: methylPREDNISolone SOD SUCC 40 MG/ML VIAL IVP SCH ×3 (06:33→21:14)
--- NOTE | 2019-07-09 06:39 | NUR ---
MORPHINE SULFATE 2 MG IVP ADMINISTER FOR ACUTE GENERAL PAIN 3/10 off loading with pillows used & helpful .
[2019-07-09] MEDS: MORPHINE 2 MG/ML INJ. SYRINGE IVP PRN (06:43)
--- NOTE | 2019-07-09 07:20 | NUR ---
Opening Note Received plan of care via sbar from endorsing nurse Diony PARK. Completed patient round. Patient was not presenting any signs of acute distress. Safety measures met.
[2019-07-09] MEDS: VORICONAZOLE 200 MG TABLET PO SCH ×2 (09:30→21:13)
[2019-07-09] MEDS: cefTRIAXone 1 GM in D5W 50 ML IV SCH (09:30)
--- NOTE | 2019-07-09 09:30 | NUR ---
Dr. Blair at bedside. Per Dr. Blair pt will be weened to SIMV and there will be a change in fluid.
[2019-07-09] MEDS: FAMOTIDINE PF 20 MG/2 ML VIAL IVP SCH ×2 (09:31→21:13)
[2019-07-09] MEDS: ENOXAPARIN SODIUM 40 MG/0.4 ML SYRINGE SUBCUT SCH (09:31)
--- NOTE | 2019-07-09 09:36 | NUR ---
Nutrition Update Julio Scale 13 noted. Pt admitted for respiratory failure. Diet: NPO BMI: 21.1 kg/m2 RD to follow per nutrition care standards.
[2019-07-09] MEDS: SULFAMETHOXAZOLE/TRIMETHOPR DS 1 TABLET PO SCH ×2 (09:37→21:13)
--- NOTE | 2019-07-09 09:40 | NUR ---
RT NOTES Vent settings to SIMV [address] Blair's order. Pt. was educated on new vent settings and appears to understand education given. No adverse reactions noted. Will monitor pt. Pt's mom at bedside
--- NOTE | 2019-07-09 10:44 | NUR ---
Spoke to Dr. Stuart to discuss patient diet. Per Dr. Stuart he would like to wait to see if the patient will be extubated prior to starting diet.
[2019-07-09] MEDS: NACL 0.9% 1,000 ML IV SCH (10:50)
[2019-07-09] MEDS: AZITHROMYCIN 500 MG in NS 250 ML IV SCH (10:51)
--- NOTE | 2019-07-09 19:16 | NUR ---
Closing Note: Provided plan of care via sbar to endorsing nurse Edy PARK. Completed patient round.
--- NOTE | 2019-07-09 19:44 | NUR ---
PM Assessment Pt in bed, AAO. SR on the monitor. Vent settings: SIMV 8, FIO2 30%, TV 450, PEEP 5, PS 10, saturating in the 90s. No s/s of distress noted. Pt has IVF running, IV sites C/D/I, no s/s of infiltration noted. Pt has Rt NGT clamped, and hayes catheter in place draining urine to gravity. Bed locked in lowest position, call light in reach, and safety precautions in place. Will continue to monitor.
[2019-07-10] VITALS (35 sets, daily range): BP systolic 107–158
[2019-07-10] MEDS: NACL 0.9% 1,000 ML IV SCH ×3 (00:30→14:26)
[2019-07-10] MEDS: IPRATROPIUM BROM 0.5 MG/2.5 ML VIAL.NEB (ATROVENT) INH SCH ×4 (00:40→20:26)
[2019-07-10] MEDS: ALBUTEROL SULFATE 0.083% 2.5 MG/3 ML VIAL.NEB INH SCH ×4 (00:40→20:26)
--- NOTE | 2019-07-10 01:05 | NUR ---
ROUNDS Pt in bed, in bed on phone. No s/s of distress. Able to make needs known. VSS. Will continue to monitor.
--- NOTE | 2019-07-10 04:00 | NUR ---
ROUNDS Pt in bed asleep. VSS. no s/s of distress noted. IV sites C/D/I. Will continue to monitor.
[2019-07-10] MEDS: methylPREDNISolone SOD SUCC 40 MG/ML VIAL IVP SCH ×2 (05:22→18:35)
[2019-07-10 05:33] LABS: HEMATOCRIT 27.8 % (36-54); HEMOGLOBIN 9.2 g/dL (14.0-18.0); LYMPHOCYTES # (AUTO) 0.2 K/uL (1.0-5.5); LYMPHOCYTES % (AUTO) 2.5 % (20.5-51.5); MEAN CORPUSCULAR HEMOGLOBIN 29 pg (27-31); MEAN CORPUSCULAR HGB CONC 33 % (32-36); MEAN CORPUSCULAR VOLUME 89 fL (79.0-98.0); MONOCYTES # (AUTO) 0.1 K/uL (0.0-1.0); MONOCYTES % (AUTO) 1.3 % (1.7-9.3); NEUTROPHILS # (AUTO) 8.4 K/uL (1.8-7.7); NEUTROPHILS % (AUTO) 96.2 % (40.0-70.0); PLATELET COUNT (AUTO) 142 K/uL (130-430); RED BLOOD CELL COUNT(AUTO) 3.13 MIL/uL (4.2-6.2); RED CELL DISTRIBUTION WIDTH 15.1 % (9.0-15.0); WHITE BLOOD COUNT (AUTO) 8.7 K/uL (4.8-10.8)
[2019-07-10 05:57] LABS: CALCIUM 7.9 mg/dL (8.4-11.0); CREATININE 0.91 mg/dL (0.55-1.30); TOTAL BILIRUBIN 0.2 mg/dL (0.0-1.0)
--- NOTE | 2019-07-10 06:36 | NUR ---
Closing Note Pt in bed, remains AAO. SR on the monitor, tolerating vent setting well. No s/s of distress noted. VSS. IV sites remain C/D/I, no s/s of infiltration noted. IVF running. Aleman catheter draining urine to gravity. NGT remains clamped, No drainage noted. Bed locked in lowest position, call light in reach, and safety precautions in place. Will endorse to oncoming RN.
--- NOTE | 2019-07-10 07:16 | NUR ---
Endorsement Report given to oncoming RN at bedside via SBAR approach.
--- NOTE | 2019-07-10 07:30 | NUR ---
Am NOTES: Received patient alert, awake, orientedx4, denies pain and discomfort. no s/s of distress. informed about the POC. verbalized understanding. encourage to call when assistance needed. call light within reach. will monitor. Addendum: 07/10/19 at 0743 by Lev Xie RN understanding via signed language.
[2019-07-10] MEDS: FAMOTIDINE PF 20 MG/2 ML VIAL IVP SCH ×2 (09:06→21:14)
[2019-07-10] MEDS: cefTRIAXone 1 GM in D5W 50 ML IV SCH (09:07)
[2019-07-10] MEDS: VORICONAZOLE 200 MG TABLET PO SCH ×2 (09:07→21:14)
[2019-07-10] MEDS: ENOXAPARIN SODIUM 40 MG/0.4 ML SYRINGE SUBCUT SCH (09:08)
[2019-07-10] MEDS: SULFAMETHOXAZOLE/TRIMETHOPR DS 1 TABLET PO SCH ×2 (09:08→21:14)
--- NOTE | 2019-07-10 10:00 | NUR ---
PATIENT RESTING: Patient resting quietly. No acute distress noted. Vital signs within normal range.
[2019-07-10] MEDS: AZITHROMYCIN 500 MG in NS 250 ML IV SCH (11:43)
--- NOTE | 2019-07-10 14:49 | NUR ---
Dietitian Recommendations * Consider advance diet if/when medically appropriate (clear liquid) LV, RD Please refer to Nutrition Assessment for details. Addendum: 07/10/19 at [address] Amended: Links added.
--- NOTE | 2019-07-10 14:53 | NUR ---
Discharge Planning Assessment: BANKING MANAGER met with Pt at bed side to conducte DCPA. Pt was intubated used written communication for assessment.Pt. has no preference in HH/SNF providers, he would like to remain at home. His mother is his [facility] palliative care physician, he supports himself through SSDI, he has [employer]- [place]. DME at home is [employer], utilizes walker " a bit" and wheelchair "rarely". He reported that he is fairly independent and would like to return home with previous arrangements, he intends to be DC home private car. He had no further inquiry or concern at this time.
--- NOTE | 2019-07-10 15:00 | NUR ---
MD ROUNDS: SEEN BY DR. HUSTON UPDATED PATIENT CURRENT CONDITION.
--- NOTE | 2019-07-10 16:00 | NUR ---
CECELIA BETHEA FOR ABG RESULT. S/W [facility]. AWAITED TO CALLBACK.
--- NOTE | 2019-07-10 17:28 | NUR ---
TRANSFERRED CARE TO YUDITH PARK. PATIENT STABLE, AFEBRILE. NO S/S OF DISTRESS. ALL NEEDS METS.
--- NOTE | 2019-07-10 17:33 | NUR ---
Continuation of Care Patient received awake, able to communicate, and on his phone with no signs of distress @ this time. Patient intubated and is on CPAP 5/10 and FiO2 30%. Patient on security monitor with NSR. No complaints of pain. Safety precautions reinforced.
--- NOTE | 2019-07-10 18:10 | NUR ---
Paged Dr. Chamorro for orders. Spoke with edith Adair.
--- NOTE | 2019-07-10 19:19 | NUR ---
Closing Note Patient endorsed to assistant shift supervisor RN using SBAR format. Patient on his phone @ this time. No signs of distress noted.
--- NOTE | 2019-07-10 20:00 | NUR ---
AWAKE, ALERT. FOLLOWS SIMPLE COMMANDS. ORALLY INTUBATED. ON CPAP 5, PS 10, FIO2 30%. SUCTIONS SELF ORALLY VIA YANKAUER. NGT THRU LEFT NARES CLAMPED. HOWARD CATH PATENT DRAINING CLEAR LEATHA URINE TO GRAVITY. SINUS RHYTHM.
--- NOTE | 2019-07-10 22:00 | NUR ---
RESTING,WATCHING TV. VENT SETTINGS CHANGED TO AC 10, VT450, FIO2 30 %, P5 PER STANDING ORDER.
[2019-07-11] VITALS (29 sets, daily range): BP systolic 122–149
--- NOTE | 2019-07-11 | NUR ---
SUCTIONED. ORAL CARE GIVEN. ASSISTS WITH REPOSITIONING.
[2019-07-11] MEDS: ALBUTEROL SULFATE 0.083% 2.5 MG/3 ML VIAL.NEB INH SCH ×4 (01:47→20:39)
[2019-07-11] MEDS: IPRATROPIUM BROM 0.5 MG/2.5 ML VIAL.NEB (ATROVENT) INH SCH ×4 (01:48→20:39)
--- NOTE | 2019-07-11 02:00 | NUR ---
DOZES ON AND OFF. AWAKE AT THIS TIME, PLAYING GAMES IN PHONE. SUCTIONS SELF ORALLY.
[2019-07-11] MEDS: NACL 0.9% 1,000 ML IV SCH (02:47)
--- NOTE | 2019-07-11 04:00 | NUR ---
AWAKE. COMPLIANT. PLAYING GAMES IN PHONE. SUCTIONS SELF ORALLY . ORAL CARE RENDERED. VSS. NO DISTRESS NOTED.
--- NOTE | 2019-07-11 06:00 | NUR ---
VENT SETTINGS CHANGED BACK TO CPAP 5, PS10 PER STANDING ORDERS. SUCTIONS SELF ORALLY. ASSISTS WITH TURNING. UO GOOD. REMAINS IN GUARDED CONDITION.
[2019-07-11] MEDS: methylPREDNISolone SOD SUCC 40 MG/ML VIAL IVP SCH ×2 (06:09→18:11)
[2019-07-11 06:36] LABS: ALBUMIN 2.8 g/dL (3.4-4.8); CALCIUM 8.3 mg/dL (8.4-11.0); CREATININE 0.84 mg/dL (0.55-1.30); POTASSIUM 4.3 mmol/L (3.5-5.1); TOTAL BILIRUBIN 0.2 mg/dL (0.0-1.0)
[2019-07-11 06:38] LABS: HEMATOCRIT 27.4 % (36-54); HEMOGLOBIN 9.1 g/dL (14.0-18.0); LYMPHOCYTES # (AUTO) 0.3 K/uL (1.0-5.5); LYMPHOCYTES % (AUTO) 4.3 % (20.5-51.5); MEAN CORPUSCULAR HEMOGLOBIN 30 pg (27-31); MEAN CORPUSCULAR HGB CONC 33 % (32-36); MEAN CORPUSCULAR VOLUME 90 fL (79.0-98.0); MONOCYTES # (AUTO) 0.1 K/uL (0.0-1.0); MONOCYTES % (AUTO) 1.9 % (1.7-9.3); NEUTROPHILS # (AUTO) 5.5 K/uL (1.8-7.7); NEUTROPHILS % (AUTO) 93.8 % (40.0-70.0); PLATELET COUNT (AUTO) 132 K/uL (130-430); RED BLOOD CELL COUNT(AUTO) 3.04 MIL/uL (4.2-6.2)
--- NOTE | 2019-07-11 07:20 | NUR ---
Opening Note Received plan of care via sbar from endorsing nurse Bladimir RN. Completed patient round. Patient did not present any signs of acute distress. All safety measures met.
[2019-07-11 07:25] LABS: WHITE BLOOD COUNT (AUTO) 5.9 K/uL (4.8-10.8)
[2019-07-11] MEDS: cefTRIAXone 1 GM in D5W 50 ML IV SCH (09:27)
[2019-07-11] MEDS: FAMOTIDINE PF 20 MG/2 ML VIAL IVP SCH ×2 (09:29→21:05)
[2019-07-11] MEDS: ENOXAPARIN SODIUM 40 MG/0.4 ML SYRINGE SUBCUT SCH (09:29)
[2019-07-11] MEDS: VORICONAZOLE 200 MG TABLET PO SCH ×2 (09:30→21:06)
[2019-07-11] MEDS: SULFAMETHOXAZOLE/TRIMETHOPR DS 1 TABLET PO SCH ×2 (09:30→21:06)
--- NOTE | 2019-07-11 10:03 | NUR ---
RT Note: 0955 Pt extubated at this time and placed on 2LPM nasal cannula per Dr. Blair. V/S are as follows HR 108, Breaths/min 23, BP 142/72, and SpO2 95%. XAVIER Albarran at bedside. Will draw ABG in 1 hour and continue to monitor pt.
[2019-07-11] MEDS: AZITHROMYCIN 500 MG in NS 250 ML IV SCH (10:59)
--- NOTE | 2019-07-11 11:27 | NUR ---
RT Yeny and Jung extubated pt @ 0912. Pt tolerated well. RT applied Nasal cannula @ 2L.
--- NOTE | 2019-07-11 14:05 | NUR ---
DC NG tube @ 1400. pt tolerated well. No adverse reactions.
--- NOTE | 2019-07-11 14:10 | NUR ---
Notified Dr Blair of Elevated PCO2 level of 52.4 @ 1130 Addendum: 07/11/19 at 1411 by Nathan Hoyos RN No hannah juarez given
[2019-07-11] MEDS: 0.45% NACL 1,000 ML IV SCH (14:50)
--- NOTE | 2019-07-11 20:00 | NUR ---
pt.assessed.pt.presents quiescent affect;calm.pt.is s/p extubation;07/11/19.abg's post extubation; w/in normal limits.pt.presents o2 therapy:o2 administered @2l/min via nasal cannulae;o2-sat%=96%breathing sounds;per auscultation;wheezes audible w/in all regions.hhn;q-6hrs.hhn:q-3hrs/P;sob,wheezes.no requests for hhn-treatments.pt's diet status advanced;full liquids.i have apprised the pt. that i may provide snacks/beverages w/in the shift.no requests posited@this hour. iv fluids infusing via peripheral line.hayes catheter intact;patent;urine content present.pt.assessed for cleanliness.pt.repositioned.call light/telephone w/in reach of the pt.v/s w/in normal limits.
[2019-07-12] VITALS (15 sets, daily range): BP systolic 105–154
--- NOTE | 2019-07-12 | NUR ---
pt.assessed.v/s assessed w/in normal limits.pt.placed w/bi-pap:therapy:setting;I/E:09/25,fio-2%=28%, r/r:10.02-sat%=96%initial o2-sat upon bi-pap therapy.no c/o pain,nausea.iv fluids infusing.hayes catheter intact;patent;urine content present.no requests posited @this hour.pt.repositioned.pt. assessed for cleanliness.call light/telephone placed w/in the reach of the pt.
[2019-07-12] MEDS: IPRATROPIUM BROM 0.5 MG/2.5 ML VIAL.NEB (ATROVENT) INH SCH ×4 (01:50→20:12)
[2019-07-12] MEDS: ALBUTEROL SULFATE 0.083% 2.5 MG/3 ML VIAL.NEB INH SCH ×4 (01:50→20:13)
--- NOTE | 2019-07-12 03:00 | NUR ---
pt.requested the removal of the indwelling hayes catheter.pt.stated he was experiencing difficulty w/urination.i assessed the hayes catheter;flushed th catheter;absent obstruction:pressure upon flush: urine content return.pt.insisted to remove the hayes catheter.i have removed the hayes catheter. i have provided the urinal;placed w/in reach of the pt.to mauricio cintronin am;re;removal of the hayes catheter per pt:2/t pain;discomfort.
--- NOTE | 2019-07-12 03:15 | NUR ---
i have assessed th pt.post d/c of the hayes catheter.pt.stated he fells much better:absent pain/discomfort.
--- NOTE | 2019-07-12 03:30 | NUR ---
pt.presents initial mictrition post d/c of the hayes catheter.urine content absent hematuria/blood clots. pt.stated he is able to urinate w/out difficulty.
--- NOTE | 2019-07-12 04:00 | NUR ---
pt.assessed.v/s w/in normal limits.no c/o pain,nausea.pt.capable to urinate:bladder region absent pain/discomfort.pt.assessed for cleanliness.pt.repositioned.no requests posited @this hour.iv fluids infusing.pt.remains w/bi-pap.o2-sat%=98%.call light/telephone w/in reach of the pt.
[2019-07-12 05:47] LABS: BASOPHILS % (AUTO) 0.2 % (0.0-2.0); HEMATOCRIT 29.4 % (36-54); HEMOGLOBIN 9.7 g/dL (14.0-18.0); LYMPHOCYTES # (AUTO) 0.3 K/uL (1.0-5.5); LYMPHOCYTES % (AUTO) 4.5 % (20.5-51.5); MEAN CORPUSCULAR HEMOGLOBIN 30 pg (27-31); MEAN CORPUSCULAR HGB CONC 33 % (32-36); MEAN CORPUSCULAR VOLUME 90 fL (79.0-98.0); MONOCYTES # (AUTO) 0.2 K/uL (0.0-1.0); MONOCYTES % (AUTO) 3.2 % (1.7-9.3); NEUTROPHILS # (AUTO) 5.5 K/uL (1.8-7.7); NEUTROPHILS % (AUTO) 92.1 % (40.0-70.0); PLATELET COUNT (AUTO) 137 K/uL (130-430); RED BLOOD CELL COUNT(AUTO) 3.27 MIL/uL (4.2-6.2); RED CELL DISTRIBUTION WIDTH 14.7 % (9.0-15.0); WHITE BLOOD COUNT (AUTO) 5.9 K/uL (4.8-10.8)
[2019-07-12] MEDS: methylPREDNISolone SOD SUCC 40 MG/ML VIAL IVP SCH ×2 (05:49→19:06)
[2019-07-12] MEDS: 0.45% NACL 1,000 ML IV SCH (05:50)
[2019-07-12 06:50] LABS: ALBUMIN 2.7 g/dL (3.4-4.8); CALCIUM 8.5 mg/dL (8.4-11.0); CREATININE 0.69 mg/dL (0.55-1.30); POTASSIUM 4.3 mmol/L (3.5-5.1); TOTAL BILIRUBIN 0.2 mg/dL (0.0-1.0)
--- NOTE | 2019-07-12 07:20 | NUR ---
Opening Note Patient received resting in bed with no signs of distress noted. Patient on parachute officer with NSR. Patient on 2L oxygen via nasal cannula breathing evenly and unlabored. Patient has a left AC IV 20 gauge patent and saline-locked and right AC IV 18 gauge infusing 1/2 NS @ 50 ml/hr. No complaints of pain @ this time. Safety precautions enforced.
[2019-07-12] MEDS: cefTRIAXone 1 GM in D5W 50 ML IV SCH (09:02)
[2019-07-12] MEDS: AZITHROMYCIN 500 MG in NS 250 ML IV SCH (09:02)
[2019-07-12] MEDS: VORICONAZOLE 200 MG TABLET PO SCH ×2 (09:03→20:03)
[2019-07-12] MEDS: FAMOTIDINE PF 20 MG/2 ML VIAL IVP SCH ×2 (09:03→20:03)
[2019-07-12] MEDS: SULFAMETHOXAZOLE/TRIMETHOPR DS 1 TABLET PO SCH ×2 (09:04→20:03)
[2019-07-12] MEDS: ENOXAPARIN SODIUM 40 MG/0.4 ML SYRINGE SUBCUT SCH (09:05)
--- NOTE | 2019-07-12 11:07 | NUR ---
Transfer Patient transferred via bed in room 122A. Patient endorsed to telemetry nurse using SBAR format. No signs of distress noted.
--- NOTE | 2019-07-12 11:17 | NUR ---
REPORT RECEIVED AND RESUME CARE Received report from XAVIER Ro from ICU at bedside. Patient was transferred via bed. No acute distress. On O2 2L/min via NC. AAO x 4. Denied of pain at this time. Skin warm and dry to touch. IV intact to RAC, and SL intact to LAC, no redness, no swelling, patent. On 1/2NS at 50ml/hr, infusing well. Discussed the safety issue, use call light when needs help, and plan of care, verbally understanding. Safety measure maintained. Call light within reached. Bed locked in low position, side rails up, bed alarm on. Will continue to monitor.
--- NOTE | 2019-07-12 13:00 | NUR ---
ROUND Patient resting in the bed. No acute distress. IV intact, IVF infusing well. Safety measure maintained. Call light within reached. Bed locked in low position, side rails up, bed alarm on. Continue to monitor.
--- NOTE | 2019-07-12 14:46 | NUR ---
DR. JAMES, ALESSANDRA IN THE UNIT Dr. James in the unit and covered Dr. Stuart. Informed to Dr. James, Aleman was removed last night and patient already void several times without problem. Dr. James stated "that's good, just continue to monitor the urine output to make sure patient void".
[2019-07-12] MEDS ORDERED: CHOLECALCIFEROL (VITAMIN D3) 2,000 UNIT TABLET PO SCH (15:15)
[2019-07-12] MEDS ORDERED: CHOLECALCIFEROL (VITAMIN D3) 2,000 UNIT TABLET PO ONE (15:15)
[2019-07-12] MEDS ORDERED: MULTIVITS,CA,MINERALS/IRON/FA 1 TABLET PO ONE (15:15)
--- NOTE | 2019-07-12 15:23 | NUR ---
CONSULTATION PAGED REASON FOR CONSULTATION:PNA WAS CONSULT CALLED?Y PERSON WHO WAS NOTIFIED:KETURAH CONSULTING PHYSICIAN:YISEL IRELAND ( DAILY RELEASE AND DUPE PRINTER) ASSORTER SPECIALTY:ID ASSORTER PHONE NUMBER:[phone] REQUESTING PHYSICIAN:ALESSANDRA DUKE
--- NOTE | 2019-07-12 16:20 | NUR ---
ROUND Patient resting in the bed. No acute distress. Continue on O2 2L/min via NC. HOB elevated. IV intact, IVF infusing well. Safety measure maintained. Call light within reached. Bed locked in low position, side rails up, bed alarm on. Continue to monitor.
--- NOTE | 2019-07-12 16:34 | NUR ---
Nutrition Follow Up RD reviewed pt's current EMR including diet Hx, physician notes, nursing notes, pertinent labs/m,eds/procedures, care trends and care activity. Current diet order: Full Liquid x 1 day PO intake: 50% x 1 meal Subjective Information: Patient extubated 07/11. Pt alert and oriented upon RD interview, reports feeling much better. Patient reports very good appetite, ready to eat solid food again, no nausea, vomiting, or diarrhea. Last bowel movement was yesterday. Anthropometrics verified. *NEW* Estimated Energy Expenditure (kcals/day) 1525-1830kcal/day (25-30kcal/kg based on CBW for adult maintenance) Estimated Protein Required (g/day) 61-73g/day (0.8-1g/kg based on CBW for adult maintenance) Estimated Fluid Required (l/day) 1.8-2.1 L/day (30-35 ml/kg CBW for adult maintenance) Problem/Etiology/Signs/Symptoms Inadequate nutritional intakes related to increased metabolic demands as evidenced by current NPO status, and inability to meet estimated nutritional requirements for intubation/critical illness. *resolved Inadequate protein energy intake related to s/p extubation as evidenced by full liquid diet, PO meeting <75% of nutrition needs *new Expected Outcomes/Goals - Monitor appetite and PO intakes w/ goal of pt meeting at least 70% of estimated nutritional needs, labs trending WNL, normal GI function, and skin integrity/wt maintenance Dietitian Recommendations * Consider advancing as tolerated to Regular diet Follow Up High Risk: F/U in 2-3days LT, RD
--- NOTE | 2019-07-12 16:44 | NUR ---
Dietitian Recommendations * Consider advancing as tolerated to Regular diet Please see Nutrition Follow Up for further details. LT, RD
--- NOTE | 2019-07-12 18:52 | NUR ---
CLOSING NOTE Patient resting in the bed. No acute distress. On O2 2L/min via NC. AAO x 4. No c/o pain. Skin warm and dry to touch. IV intact to RAC, and SL intact to LAC, no redness, no swelling, patent. On 1/2NS at 50ml/hr, infusing well. All needs met. Safety measure maintained. Call light within reached. Bed locked in low position, side rails up, bed alarm on. Will endorse to [facility] nurse.
--- NOTE | 2019-07-12 19:15 | NUR ---
OPENING NOTE Bedside report received from dayshift nurse. Patient received lying in bed, no s/s of acute distress noted, patient denies any pain. Breathing even and unlabored. HOB raised, nasal canula attached properly, on 2L of oxygen. IVF infusing well, IV site patent, no signs of infiltration or infection noted. Call light with patient. Bed alarm on. Bed is locked and at lowest position. Will continue to monitor.
--- NOTE | 2019-07-12 21:00 | NUR ---
ROUNDS Patient in bed, awake, on his phone. No signs of discomfort. Patient denies any pain. Chest rise and fall even bilaterally. HOB raised, nasal canula attached properly. IVF infusing well. Call light with patient. Bed alarm on. Will continue to monitor.
--- NOTE | 2019-07-12 23:00 | NUR ---
ROUNDS Patient sleeping at this time. No s/s of acute distress noted. Breathing even and unlabored. HOB raised, nasal canula attached properly. Call light with patient. Bed alarm on. Will continue to monitor.
[2019-07-13] VITALS: BP_SYST 111
--- NOTE | 2019-07-13 01:00 | NUR ---
ROUNDS Patient in bed, asleep. No signs of discomfort noted. IVF infusing well. HOB raised, nasal canula attached properly. Chest rise and fall even bilaterally. Call light with patient. Bed alarm on. Will continue to monitor.
[2019-07-13] MEDS: IPRATROPIUM BROM 0.5 MG/2.5 ML VIAL.NEB (ATROVENT) INH SCH ×4 (01:03→19:58)
[2019-07-13] MEDS: ALBUTEROL SULFATE 0.083% 2.5 MG/3 ML VIAL.NEB INH SCH ×4 (01:03→19:58)
[2019-07-13] MEDS: 0.45% NACL 1,000 ML IV SCH ×2 (02:47→23:26)
--- NOTE | 2019-07-13 03:00 | NUR ---
ROUNDS Patient in bed sleeping. No s/s of acute distress noted. Breathing even and unlabored. HOB raised. BiPAP machine attached. IVF infusing well. Call light with patient. Bed alarm on. Will continue to monitor.
--- NOTE | 2019-07-13 05:00 | NUR ---
ROUNDS Patient in bed sleeping. No signs of discomfort noted. HOB raised, BiPAP machine attached. Chest rise and fall even bilaterally. IVF Infusing well. Call light with patient. Bed alarm on. Will continue to monitor.
[2019-07-13] MEDS: methylPREDNISolone SOD SUCC 40 MG/ML VIAL IVP SCH ×2 (06:04→18:40)
--- NOTE | 2019-07-13 06:12 | NUR ---
CLOSING NOTES Patient in bed, awake, watching videos on his phone. NO s/s of acute distress noted. Breathing even and unlabored. HOB raised, nasal canula attached properly, on 2L of oxygen. IVF infusing well, IV site patent, no signs of infiltration or infection noted. SCDs attached and operating. All needs met throughout shift. Fall and safety precautions maintained throughout shift. Will continue to monitor until patient care is endorsed to oncoming dayshift nurse.
[2019-07-13 06:25] LABS: EOSINOPHILS % (AUTO) 0.1 % (0.0-4.0); HEMATOCRIT 32.7 % (36-54); HEMOGLOBIN 10.8 g/dL (14.0-18.0); LYMPHOCYTES # (AUTO) 0.3 K/uL (1.0-5.5); LYMPHOCYTES % (AUTO) 4.5 % (20.5-51.5); MEAN CORPUSCULAR HEMOGLOBIN 29 pg (27-31); MEAN CORPUSCULAR HGB CONC 33 % (32-36); MEAN CORPUSCULAR VOLUME 89 fL (79.0-98.0); MONOCYTES # (AUTO) 0.2 K/uL (0.0-1.0); NEUTROPHILS # (AUTO) 5.9 K/uL (1.8-7.7); NEUTROPHILS % (AUTO) 92.4 % (40.0-70.0); PLATELET COUNT (AUTO) 167 K/uL (130-430); RED BLOOD CELL COUNT(AUTO) 3.68 MIL/uL (4.2-6.2); RED CELL DISTRIBUTION WIDTH 14.5 % (9.0-15.0); WHITE BLOOD COUNT (AUTO) 6.4 K/uL (4.8-10.8)
[2019-07-13 06:59] LABS: CALCIUM 8.4 mg/dL (8.4-11.0); CREATININE 0.74 mg/dL (0.55-1.30); POTASSIUM 4.9 mmol/L (3.5-5.1)
--- NOTE | 2019-07-13 07:20 | NUR ---
OPENING NOTE Patient resting in the bed. No acute distress. On O2 2L/min via NC. AAO x 4. No c/o pain. Skin warm and dry to touch. IV intact to RAC, and SL intact to LAC, no redness, no swelling, patent. On 1/2NS at 50ml/hr, infusing well. Discussed the safety issue, use call light when needs help, and plan of care, verbally understanding. Safety measure maintained. Call light within reached. Bed locked in low position, side rails up, bed alarm on. Will continue to monitor.
[2019-07-13 07:45] VITALS: BP_SYST 112
--- NOTE | 2019-07-13 08:11 | NUR ---
CALLED YOLIS MARTINEZ REGARDING FOR ABG RESULT Left message to Hidy and waited Dr. Chamorro to call back.
--- NOTE | 2019-07-13 08:27 | NUR ---
CALLED BACK FROM DR. CHAMORRO, YOLIS Received the call back from dr. Chamorro, report the ABG result; PH=[phone], PCO2=56.6, PO2=71.2, HCO3=32.5, O2 sat=93.3 on O2 2L/min via AL. Dr. Chamorro with no new order at this time.
[2019-07-13] MEDS: FAMOTIDINE PF 20 MG/2 ML VIAL IVP SCH ×2 (08:37→21:24)
[2019-07-13] MEDS: VORICONAZOLE 200 MG TABLET PO SCH ×2 (08:37→21:24)
[2019-07-13] MEDS: CHOLECALCIFEROL (VITAMIN D3) 2,000 UNIT TABLET PO SCH (08:37)
[2019-07-13] MEDS: MULTIVITS,CA,MINERALS/IRON/FA 1 TABLET PO SCH (08:37)
[2019-07-13] MEDS: SULFAMETHOXAZOLE/TRIMETHOPR DS 1 TABLET PO SCH ×2 (08:37→21:24)
[2019-07-13] MEDS: ENOXAPARIN SODIUM 40 MG/0.4 ML SYRINGE SUBCUT SCH (08:38)
[2019-07-13] MEDS: cefTRIAXone 1 GM in D5W 50 ML IV SCH (08:51)
--- NOTE | 2019-07-13 09:50 | NUR ---
SEEN AND EXAMINED BY YOLIS MARTINEZ.
[2019-07-13] MEDS: AZITHROMYCIN 500 MG in NS 250 ML IV SCH (10:15)
--- NOTE | 2019-07-13 11:25 | NUR ---
SEEN AND EXAMINED BY ADÁN RAYA.
[2019-07-13 12:00] VITALS: BP_SYST 95
--- NOTE | 2019-07-13 13:18 | NUR ---
ROUND Patient resting in the bed. No acute distress. Continue on O2 2L/min via NC. IV intact, IVF infusing well. Safety measure maintained. Call light within reached. Bed locked in low position, side rails up, bed alarm on. Continue to monitor.
[2019-07-13 16:13] VITALS: BP_SYST 101
--- NOTE | 2019-07-13 16:53 | NUR ---
ROUND Patient resting in the bed. No acute distress. Continue on O2 2L/min via NC. IV intact, IVF infusing well. Safety measure maintained. Bed locked in low position, side rails up, bed alarm on. Call light within reached. Continue to monitor.
--- NOTE | 2019-07-13 17:08 | NUR ---
SEEN AND EXAMINED BY ALESSANDRA YUNG WITH ORDER RECEIVED AND CARRIED OUT.
--- NOTE | 2019-07-13 18:59 | NUR ---
CLOSING NOTE Patient resting in the bed. No acute distress. Continue on O2 2L/min via NC. Denied of pain. Skin warm and dry to touch. IV intact to RAC, and SL intact to LAC, no redness, no swelling, patent. On 1/2NS at 50ml/hr, infusing well. All needs met. Mother at bedside. Safety measure maintained. Call light within reached. Bed locked in low position, side rails up, bed alarm on. Will endorse to jeane walker.
--- NOTE | 2019-07-13 19:55 | NUR ---
Initial note: Report received from dayshift RN. Patient is awake, no distress noted. Even and unlabored breathing on 2L NC. IV site to right AC is patent and benign. Left AC IV site flushes well with NS, no infiltration noted. Call light is with patient. Safety and fall precautions in place. Will continue with plan of care.
[2019-07-13 20:00] VITALS: BP_SYST 100
--- NOTE | 2019-07-13 22:43 | NUR ---
Rounds: Patient is awake, no distress noted. Even and unlabored breathing on 2L NC. IV fluids infusing as ordered. Call light is with patient. Will continue to monitor.
[2019-07-14] VITALS (7 sets, daily range): BP systolic 87–106
--- NOTE | 2019-07-14 01:09 | NUR ---
Rounds: Patient is resting in bed, shows no acute distress. CPAP in place, patient is tolerating well, even and unlabored breathing. IV fluids infusing as ordered. Call light with patient. Will continue to monitor.
[2019-07-14] MEDS: IPRATROPIUM BROM 0.5 MG/2.5 ML VIAL.NEB (ATROVENT) INH SCH ×4 (01:20→19:30)
[2019-07-14] MEDS: ALBUTEROL SULFATE 0.083% 2.5 MG/3 ML VIAL.NEB INH SCH ×4 (01:20→19:30)
--- NOTE | 2019-07-14 04:24 | NUR ---
Rounds: Patient is asleep, no acute distress noted. Tolerating CPAP, even and unlabored breathing, SaO2 = 97%. IV fluids infusing well to right AC IV site. Call light is with patient. Will continue monitoring.
[2019-07-14] MEDS: methylPREDNISolone SOD SUCC 40 MG/ML VIAL IVP SCH (05:58)
--- NOTE | 2019-07-14 06:52 | NUR ---
Closing note: Patient is resting in bed, no acute distress, tolerating CPAP on settings of 12/5, FiO2 = 28%. Even and unlabored breathing. IV fluids infusing well to right AC IV site. Left AC IV site is saline locked, patent and benign. All needs met. Safety and fall precautions maintained. Hourly rounding performed throughout shift. Will endorse care to dayshift RN.
--- NOTE | 2019-07-14 07:38 | NUR ---
rn opening note Report was endorsed by night nurse. Patient is awake and alert, sitting in bed no signs of any distress, breathing is equal and non labored. Patient has no complaints at this time. Patient educated certified meeting professional light for assistance. Call light is with patient. Patient has no other needs at this time. will continue to monitor.
[2019-07-14] MEDS: MULTIVITS,CA,MINERALS/IRON/FA 1 TABLET PO SCH (08:31)
[2019-07-14] MEDS: CHOLECALCIFEROL (VITAMIN D3) 2,000 UNIT TABLET PO SCH (08:32)
[2019-07-14] MEDS: VORICONAZOLE 200 MG TABLET PO SCH ×2 (08:32→21:02)
[2019-07-14] MEDS: SULFAMETHOXAZOLE/TRIMETHOPR DS 1 TABLET PO SCH ×2 (08:32→21:02)
[2019-07-14] MEDS: FAMOTIDINE PF 20 MG/2 ML VIAL IVP SCH ×2 (08:32→21:01)
[2019-07-14] MEDS: ENOXAPARIN SODIUM 40 MG/0.4 ML SYRINGE SUBCUT SCH (08:35)
[2019-07-14] MEDS: cefTRIAXone 1 GM in D5W 50 ML IV SCH (08:51)
--- NOTE | 2019-07-14 09:00 | NUR ---
RN ROUNDING Patient is laying in bed no signs of any distress, breathing is equal and non labored. Patient educated content developer light for assistance. Call light is with patient. Patient has no other needs at this time. will continue to monitor. no complaints at this time. Patient is close to nurses station.
--- NOTE | 2019-07-14 11:10 | NUR ---
assisted to bathroom Patient ambulated to bathroom provided with an extension tubbing for oxygen. Patient gait is steady slight dizziness upon sitting up then it went away. Patient states he feels good. Patients mother at bed side. Patient provided with chair at bed side. Patient bed linen changed. Patient educated to use call light for assistance.Call light is with patient. no other needs at this time. will continue to monitor.
--- NOTE | 2019-07-14 13:00 | NUR ---
RN ROUNDING patient is sitting up in bed, eating lunch, no signs of any distress, breathing is equal and non labored. Patient has all safety precautions in place. Educated to use call light for assistance. Patient vega no complaints at this time. No other needs will continue to monitor.
--- NOTE | 2019-07-14 15:00 | NUR ---
rn rounding Patient is awake and alert laying in bed .Patient has no complaints of shortness of breath, patient has no complaints of pain. Breathing is equal and non labored. Patient educated communications equipment installer light for assistance.Call light is with patient. patient is close to nurses station no other needs at this time . will continue to monitor.
--- NOTE | 2019-07-14 17:44 | NUR ---
P.T. NOTES P.T. TODD COMPLETED; NURSING TO [facility], USES HOME O2. Addendum: 07/14/19 at 1744 by Viri Stewart PT Amended: Links added.
--- NOTE | 2019-07-14 18:38 | NUR ---
rn closing note Patient is awake and alert ambulating to bathroom, and back to bed gait is steady denies any shortness of breath. Patient breathing is equal and non labored. Patient educated to use call light for assistance.call light is with patient. Patient is close to nurse station. Patients mother is at bed side. Patient has no complaints at this time. patient has no other needs at this time.
--- NOTE | 2019-07-14 19:42 | NUR ---
OPENING NOTES Received patient AO4, resting in bed. No sign of distress, non labored breathing on 2L NC. IV is SL. Instructed on use of call light. Bed is locked in lowest position. Updated board.
[2019-07-14] MEDS: PREDNISONE 20 MG TABLET PO SCH (21:01)
--- NOTE | 2019-07-14 21:03 | NUR ---
Medications Due medications given. Educated on indication/side effects and patient verbalized understanding. Emptied 100 ml of clear yellow urine from urinal. Patient refused SCD's stating he started sitting today and walked with assist. Educated on reason for SCD's and also let him know that he also has Lovenox for DVT. Call light w/in reach.
--- NOTE | 2019-07-14 21:18 | NUR ---
CPAP RT set up CPAP, patient tolerating, saturation is 97%. Call light w/in reach.
--- NOTE | 2019-07-15 00:10 | NUR ---
Rounds Vital signs taken and B/P is low 99/58, his blood pressure trend has been low. Presently denies dizziness and also denies pain. Will monitor.
[2019-07-15] MEDS: ALBUTEROL SULFATE 0.083% 2.5 MG/3 ML VIAL.NEB INH SCH ×3 (00:50→13:26)
[2019-07-15] MEDS: IPRATROPIUM BROM 0.5 MG/2.5 ML VIAL.NEB (ATROVENT) INH SCH ×3 (00:51→13:26)
--- NOTE | 2019-07-15 02:15 | NUR ---
CPAP Patient moved in bed and CPAP tube disconnected. Assessed and all tubing connected. Called RT and confirmed CPAP is working properly. No further needs.
--- NOTE | 2019-07-15 07:30 | NUR ---
Opening note Patient sitting up in bed. A/Ox4, no complaints of pain. No SOB. IV patent, intact. No adverse side effects. O2 sat 99% on O2 2lpm via nasal cannula. On safety and aspiration precautions, HOB kept elevated, bed in lowest position, bed alarm on, 3 side rails up. Call light within reach. Patient in stable condition. Will continue to monitor.
[2019-07-15 08:00] VITALS: BP_SYST 106
[2019-07-15] MEDS: PREDNISONE 20 MG TABLET PO SCH (08:21)
[2019-07-15] MEDS: CHOLECALCIFEROL (VITAMIN D3) 2,000 UNIT TABLET PO SCH (08:22)
[2019-07-15] MEDS: FAMOTIDINE PF 20 MG/2 ML VIAL IVP SCH (08:22)
[2019-07-15] MEDS: MULTIVITS,CA,MINERALS/IRON/FA 1 TABLET PO SCH (08:22)
[2019-07-15] MEDS: SULFAMETHOXAZOLE/TRIMETHOPR DS 1 TABLET PO SCH (08:22)
[2019-07-15] MEDS: ENOXAPARIN SODIUM 40 MG/0.4 ML SYRINGE SUBCUT SCH (08:23)
[2019-07-15] MEDS: cefTRIAXone 1 GM in D5W 50 ML IV SCH (08:24)
[2019-07-15] MEDS: VORICONAZOLE 200 MG TABLET PO SCH (08:26)
--- NOTE | 2019-07-15 08:45 | NUR ---
Medications All morning medications given as ordered. No adverse side effects noted. patient in stable condition.
--- NOTE | 2019-07-15 10:22 | NUR ---
Rounds Patient resting in bed at this time, offered assistance to the bathroom, patient declined need. Water pitcher refilled. no other needs at this time.
--- NOTE | 2019-07-15 11:50 | NUR ---
DC PLANNING: CONTACTED [facility] @ P SPOKE WITH MOUNIKA ([employer]YON[employer]) REGARDING PATIENT NEEDING OXYGEN TO GO HOME. PER MOUNIKA, HE WILL BE CONTACTING PATIENT'S MOTHER (ADIN) TO ARRANGE DELIVERY OF OXYGEN TANKS AT HOME TODAY.
--- NOTE | 2019-07-15 12:02 | NUR ---
Rounds patient awaiting discharge prescriptions, and Oxygen tank. No complaints of pain. No SOB at this time.
[2019-07-15 12:50] VITALS: BP_SYST 106
[2019-07-15 12:56] VITALS: BP_SYST 93
[2019-07-15] MEDS ORDERED: PRED20TA PO ×2 (13:47→13:49)
[2019-07-15] MEDS ORDERED: AMOX-426 PO (13:50)
--- NOTE | 2019-07-15 14:04 | NUR ---
Rounds patient resting in bed at this time, no complaints of pain. No SOB. Patient in stable condition. Offered to assist patient to the restroom, patient declined need. No other needs at this time.
--- NOTE | 2019-07-15 14:59 | NUR ---
D/C Patient Patient given medication reconciliation form and D/C instructions. Exit Care provided. Patient verbalized understanding. MD discussed with patient the results and treatment provided. Ambulatory with steady gait for discharge to home. Patient in stable condition, ID band removed. IV catheter removed, intact and dressing applied, no active bleeding. Rx of Prednisone, and augmentin given. Patient educated on pain management. All belongings sent with patient.
--- NOTE | 2019-07-29 16:01 | NUR ---
DISCHARGE FOLLOW UP PHONE CALL [facility]/ MELBA JONES PHONED PATIENT, . PATIENT STATED HE IS DOING BETTER. HE UNDERSTOOD HIS DISCHARGE INSTRUCTIONS. HAS NO QUESTIONS OR CONCERNS. HE STATED HE HAS AN APPOINTMENT NEXT WEEK WITH PULMONARY PHYSICIAN. PATIENT HAS NO QUESTIONS OR CONCERNS.
== END 2019-07-15 15:00 | disposition home or self-care (01) | DRG 133 ==
LOC: SED 08:33 → SIC 10:43 → STU 07-12 11:10 → SMU 07-13 17:08
PROVIDERS: ADMIT Internal Medicine Hospice and Palliative Medicine; ATTEND Internal Medicine Hospice and Palliative Medicine
PROC: 5A1945Z Respiratory Ventilation, 24-96 Consecutive Hours (ICD-10-PCS; principal; 2019-07-08)
PROC: 0BH17EZ Insertion of Endotracheal Airway into Trachea, Via Natural or Artificial Opening (ICD-10-PCS; 2019-07-08)
PROC: 5A09357 Assistance with Respiratory Ventilation, Less than 24 Consecutive Hours, Continuous Positive Airway Pressure (ICD-10-PCS; 2019-07-12)
PROC: 5A09357 Assistance with Respiratory Ventilation, Less than 24 Consecutive Hours, Continuous Positive Airway Pressure (ICD-10-PCS; 2019-07-14)
DX: J96.22 Acute and chronic respiratory failure with hypercapnia (principal); B44.1 Other pulmonary aspergillosis; J18.9 Pneumonia, unspecified organism; E44.0 Moderate protein-calorie malnutrition; J44.0 Chronic obstructive pulmonary disease with (acute) lower respiratory infection; Z99.81 Dependence on supplemental oxygen; I10 Essential (primary) hypertension; L92.9 Granulomatous disorder of the skin and subcutaneous tissue, unspecified; D63.8 Anemia in other chronic diseases classified elsewhere; Z87.01 Personal history of pneumonia (recurrent); Z79.899 Other long term (current) drug therapy
CPT/HCPCS: 36415; 36600; 71045; 80048; 80053; 81000-TC; 82803-TC; 83605; 83880; 84484; 85025; 85379; 85610-TC; 85730-TC; 87040-TC; 87070-TC; 87081; 87086; 87205-TC; 93005; 94002; 94003; 94640; 94660; 94760; 96365; 96368; 96375; 96376; 97163; 99291; G0378; J0456; J0696; J1030; J1650; J2060; J2270; J2405; J2543; J2930; J3370; J3490; J7030; J7050; J7060; J7512; J7613; J7614